=== PATIENT | male | born 1955 | race Caucasian/White ===

== ENCOUNTER 2019-02-01 19:55 | Outpatient (CLI) | payer BC | END 2019-02-02 06:45 | disposition home or self-care (01) | LOC: SLEEP 19:55 → EDUNIT# 20:00 → SLEEP 02-02 06:45 | PROVIDERS: ATTEND Internal Medicine Interventional Cardiology | DX: G47.00 Insomnia, unspecified (principal); G47.36 Sleep related hypoventilation in conditions classified elsewhere; I48.0 Paroxysmal atrial fibrillation; R06.83 Snoring; Z79.82 Long term (current) use of aspirin; Z79.899 Other long term (current) drug therapy | CPT/HCPCS: 95811 ==

== ENCOUNTER → 2019-06-03 | Day surgery (SDC) | payer BC ==
[~2019-06-03] VITALS: Ht 182.9 cm; Wt 102.1 kg
[~2019-06-03] MED LIST: LIDOCAINE 1% INJ 20 ML 20 ML VIAL ONE
[2019-06-03 08:06] VITALS: BP 153/99
--- NOTE | 2019-06-03 16:57 | Implantation of Loop Monitor ---
Implant of Loop Monitior PROCEDURE PHYSICIAN: Shira Monique MD IMPLANTATION OF LOOP MONITOR REPORT DATE OF PROCEDURE: 06/03/19 PERFORMING PHYSICIAN: Dr. David Monique. INDICATION: Long-term surveillance of atrial fibrillation PREOP DIAGNOSIS: Long-term surveillance of atrial fibrillation POSTOP DIAGNOSIS: Atrial fibrillation, s/p implantation of loop recorder. PROCEDURE DETAILS: The patient is a 63 male with history of paroxysmal atrial fibrillation requi ring long-term surveillance. Therefore implantable loop recorder was discussed and agreed with the patient. Informed consent was taken. All risks and complications were discussed at length. The patient was draped and prepped in the usual sterile fashion. Local anesthesia was lidocaine, which was given in the substernal area close to the 4th intercostal space. Loop monitor was impl anted according to the protocol. Steri-Strips were placed at the end of the procedure. There were no complications and the patient tolerated the procedure well. ANESTHESIA: Local anesthesia with lidocaine. COMPLICATIONS: None CONTRAST/FLUOROSCOPY: None CONCLUSION: 1. Successful implantation of loop monitor for paroxysmal atrial fibrillation. 2. No complication and the patient tolerated the procedure well. Shira Monique MD, RS, CCDS Cardiac Electrophysiology Pebbles MONIQUE MD Jun 03, 2019 16:57
== END | disposition home or self-care (01) ==
LOC: CATH 07:46
PROVIDERS: ATTEND Internal Medicine Interventional Cardiology
DX: I48.0 Paroxysmal atrial fibrillation (principal); G47.33 Obstructive sleep apnea (adult) (pediatric); E66.9 Obesity, unspecified; Z68.30 Body mass index [BMI] 30.0-30.9, adult; Z82.49 Family history of ischemic heart disease and other diseases of the circulatory system; Z79.82 Long term (current) use of aspirin; Z79.899 Other long term (current) drug therapy
CPT/HCPCS: 33285

== ENCOUNTER → 2019-06-17 | Outpatient (CLI) | payer BC ==
[~2019-06-17] MED LIST changes: +CATHETER FLUSH 10 ML SYR IV PRN; -LIDOCAINE 1% INJ 20 ML 20 ML VIAL ONE; +REGADENOSON 0.4 MG/5 ML SYR (LEXISCAN) IV ONE
[2019-06-17 09:27] VITALS: BP 139/70
[2019-06-17 09:29] VITALS: BP 141/105
--- NOTE | 2019-06-21 15:18 | Cardiology Stress Test Report ---
Stress Test Report Type of NM Stress Test: Test Type: LEXISCAN 0.4MG/5ML Date of Procedure/Referring: Date of Procedure: Jun 17, 2019 PCP Pebbles Monique MD Admitting Physician Holland Meyer MD Indications: Paroxysmal atrial fibrillation, shortness of breath Baseline Heart Rate: 60 Baseline Blood Pressure: Blood Pressure Systolic: 141 Blood Pressure Diastolic: 105 Baseline EKG: Baseline EKG: sinus rhythm Summary & Conclusion: Summary: The patient was brought to the stress lab after informed consent was taken. Stress test was performed according to the Lexiscan protocol. 0.4 mg of IV Lexiscan was given. Low-grade exercise was performed. Baseline EKG showed sinus rhythm at 60 BPM. Initial blood pressure was 129/83 mmHg. Maximum heart rate was 81 bpm and blood pressure 135/83 mmHg. Patient had mild chest pressure. no arrhythmias or ST segment changes during the stress test. 10.95 mCi of Myoview were given for rest imaging and 32.7 mCi of Myoview given for stress imaging. Transient ischemic dilatation score 1.04, EF 62 percent. Normal wall motion. Distal apical, inferior reversible defect. Conclusion: Pharmacological stress test was negative for ischemia. Normal LV function with no wall motion abnormalities. Likely ischemia in the distal inferior, apical territory. Coronary angiography is recommended. Pebbles MONIQUE MD Jun 21, 2019 15:18
== END ==
LOC: CARD 08:15
PROVIDERS: ATTEND Internal Medicine Interventional Cardiology
DX: G47.33 Obstructive sleep apnea (adult) (pediatric) (principal); E66.9 Obesity, unspecified; I48.0 Paroxysmal atrial fibrillation
CPT/HCPCS: 78452; 93017

== ENCOUNTER 2019-07-01 08:39 | Day surgery (SDC) | payer BC ==
[2019-07-01] VITALS (11 sets, daily range): BP systolic 128–174; BP diastolic 54–98
[~2019-07-01] VITALS: Ht 185.5 cm; Wt 102.3 kg
[2019-07-01] MEDS ORDERED: NS IV 1000 ML 1,000 ML IV SCH (09:34)
[2019-07-01] MEDS ORDERED: NS IV 1000 ML 1,000 ML ONE (09:35)
[2019-07-01] MEDS ORDERED: LIDOCAINE 1% INJ 20 ML 20 ML VIAL ONE (09:35)
[2019-07-01] MEDS ORDERED: HEParin (CATH LAB) 2,000 ML IV ONE (09:35)
[2019-07-01 10:00] LABS: HEMOGLOBIN 15.4 G/DL (13.3-17.7); MEAN PLATELET VOLUME 9.8 FL (7.4-10.4); RED CELL DISTRIBUTION WIDTH 13.7 % (10.0-14.5); WHITE BLOOD COUNT 6.9 10^3/uL (4.3-11.0)
[2019-07-01] MEDS ORDERED: NEBI5TAB8 PO ×2 (10:17→10:20)
[2019-07-01] MEDS ORDERED: TIMO5DRO8 OU (10:20)
[2019-07-01] MEDS ORDERED: DEXL60CA PO (10:21)
[2019-07-01] MEDS ORDERED: ASPI-808 PO (10:21)
[2019-07-01] MEDS ORDERED: CHOL5000 PO (10:21)
[2019-07-01] MEDS ORDERED: LORA10TA76 PO (10:22)
--- NOTE | 2019-07-01 10:22 | NUR ---
Spoke to patient he stated all of his medications with strengths and last time took.
[2019-07-01 10:25] LABS: PROTHROMBIN TIME PATIENT 13.6 SEC (12.2-14.7)
[2019-07-01 10:33] LABS: ALANINE AMINOTRANSFERASE 64 U/L (0-55); ALBUMIN 4.4 GM/DL (3.2-4.5); ALKALINE PHOSPHATASE 67 U/L (40-136); BILIRUBIN,TOTAL 0.6 MG/DL (0.1-1.0); BUN/CREATININE RATIO 11; CALCIUM 9.7 MG/DL (8.5-10.1); CARBON DIOXIDE 28 MMOL/L (21-32); CHLORIDE 105 MMOL/L (98-107); CHOLESTEROL 171 MG/DL (< 200); CREATININE SERUM 1.06 MG/DL (0.60-1.30); GFR ESTIMATED > 60; GLUCOSE 95 MG/DL (70-105); HDL CHOLESTEROL 35 MG/DL (40-60); POTASSIUM 4.2 MMOL/L (3.6-5.0); SODIUM 140 MMOL/L (135-145); TOTAL PROTEIN 7.2 GM/DL (6.4-8.2); TRIGLYCERIDES 189 MG/DL (<150); VLDL CHOLESTEROL 38 MG/DL (5-40)
--- NOTE | 2019-07-01 13:27 | Cardiac Procedure Note-CS/ASA ---
Pre-Procedure Note Pre-Op Procedure Note H&P Reviewed The H&P was reviewed, patient examined and no changes noted. Date H&P Reviewed: Jul 01, 2019 Time H&P Reviewed: 13:27 Conscious Sedation Pre-Proced Time 13:27 ASA Score 3 For ASA 3 and 4: Consider anesthesia and medical clearance. Also, for patients with a history of failed moderate sedation consider anesthesia. Airway Lungs Heart ASA score ASA 1: a normal healthy patient ASA 2: a patient with a mild systemic disease (mid diabetes, controlled hypertension, obesity ASA 3: a patient with a severe systemic disease that limits activity (angina, COPD, prior Myocardial infarction) ASA 4: a patient with an incapacitating disease that is a constant threat to life (CHF, renal failure) ASA 5: a moribund patient not expected to survive 24 hrs. (ruptured aneurysm) ASA 6: a declared brain- patient whose organs are being harvested. For emergent operations, add the letter E after the classification Mallampati Classification Grade 1 Sedation Plan Analgesia, Amnesia, Plan communicated to team members, Discussed options with patient/fam, Discussed risks with patient/fam The patient is an appropriate candidate to undergo the planned procedure, sedation, and anesthesia. The patient immediately re-assessed prior to indication. Pebbles MIRANDA MD Jul 01, 2019 1:27 pm
[2019-07-01] MEDS ORDERED: MIDAZOLAM 5 MG/5 ML (VERSED) VIAL ONE (13:35)
[2019-07-01] MEDS ORDERED: VERAPAMIL 5 MG/2 ML (CALAN) VIAL IV ONE (13:35)
[2019-07-01] MEDS ORDERED: HEParin 1000 UNIT/ML (10ML VIAL) FOR BOLUS ONE (13:35)
[2019-07-01] MEDS ORDERED: fentaNYL INJECTION 100 MCG/2 ML AMP ONE (13:35)
[2019-07-01] MEDS ORDERED: NITRO DRIP 25000 MCG/D5W 250 ML IV ONE (13:36)
[2019-07-01] MEDS ORDERED: TICAGRELOR 90 MG TABLET (BRILINTA) PO ONE (14:20)
--- NOTE | 2019-07-01 15:05 | Coronary Angiography & PCI ---
Coronary Angiography & PCI DATE OF PROCEDURE: 07/01/19 INDICATION: Paroxysmal atrial fibrillation, abnormal nuclear stress test. PREOPERATIVE DIAGNOSIS: Paroxysmal atrial fibrillation, abnormal nuclear stress test. POSTOPERATIVE DIAGNOSIS: Severe ostial ramus intermedius stenosis, successful drug-eluting stent. HISTORY: This is a 63-year-old gentleman with history of paroxysmal atrial fibrillation. We need to start the patient on antiarrhythmic therapy class IC therefore nuclear stress test was done which showed reversible ischemia. Therefore, the patient was scheduled for coronary angiography. PROCEDURES PERFORMED: 1.Coronary angiography. 2.Left heart catheterization. 3.PCI to the ramus intermedius with drug-eluting stent. COMPLICATIONS: None. SPECIMENS: None. ESTIMATED BLOOD LOSS: 10 mL ANESTHESIA: Conscious sedation ANTICOAGULATION: IV heparin CONTRAST: 124 mL. FLUOROSCOPY: 16 minutes. FLOUROSCOPY DOSE: 1626 mgy. PROCEDURE DETAILS: The patient is a 63 male and was brought to the laboratory coordinator after informed consent was taken. All the risks and complications were explained in detail; this included the risk of bleeding, vascular damage, stroke, [place] and even . The patient was draped and prepped in the usual sterile fashion. Access was gained in the right radial artery with a 6 Serbian sheath. Coronary angiography and left heart catheterization was performed with the Dudley catheter. Tortuous origin of the brachiocephalic artery from the aorta, making radial coronary angiography very challenging. FINDINGS: 1.Left main: Patent. 2.LAD: Mild mid disease. No focal stenosis. 3.Left circumflex artery: Severe ostial ramus intermedius stenosis. Stenosis severity is 90 percent. Long diseased segment. 4.RCA: Mild mid disease. 5.Left heart catheterization: LV pressure 105/12 mmHg. LVEDP 23 mmHg. Aortic pressure 100/64 mmHg. Normal LV function with no wall motion abnormalities. No gradient across the aortic valve. RECOMMENDATIONS: PCI to the ramus intermedius artery is recommended. INTERVENTION DETAILS: JL4 guide catheter, whisper extra-support guidewire, IV heparin for anticoagulation. ACT was over 220 seconds. Brilinta bolus 180 mg was given before PCI. The lesion in the ramus artery was crossed with the whisper wire. The tip of the whisper wire was placed in the distal segment. We then took a resolute integrity 2.75 x 30 mm drug-eluting stent and deployed it at 14 tanya for 41 seconds. We then took an NC Quantum 3.5 x 20 mm noncompliant balloon and postdilated the midsegment at 14 tanya for 46 seconds and the proximal segment at 16 tanya for 30 seconds. Mild spasm just distal to the stent. Responded to IC nitroglycerin. Excellent results with no residue stenosis, KHOI-3 flow, no vascular complications. Patient tolerated the procedure well. CONCLUSIONS: 1. Dual antiplatelet therapy, statin, aggressive secondary prevention measures. 2. Aspirin, Brilinta, Eliquis for the next one month. We will then discontinue aspirin and continue Brilinta and Eliquis long-term. Shira Monique MD, FACP, FACC, [facility] Interventional Cardiology Pebbles MONIQUE MD Jul 01, 2019 3:05 pm
[2019-07-01] MEDS: CLOPIDOGREL 75 MG (PLAVIX) TABLET PO SCH (16:22)
[2019-07-02] VITALS: BP 124/73
[2019-07-02 04:00] VITALS: BP 116/73
[2019-07-02] MEDS: CLOPIDOGREL 75 MG (PLAVIX) TABLET PO SCH (07:48)
[2019-07-02 08:00] VITALS: BP 139/76
[2019-07-02] MEDS ORDERED: lisINopril 5 MG (PRINIVIL) TABLET PO SCH (09:00)
[2019-07-02] MEDS ORDERED: CLOP75TA28 PO (09:54)
[2019-07-02] MEDS ORDERED: LISI-556 PO (09:54)
[2019-07-02] MEDS ORDERED: ATOR80TA76 PO (09:54)
--- NOTE | 2019-07-02 09:55 | Discharge Inst-Post CATH ---
Discharge Inst-CATH/EP Problems Reviewed?: Yes Final Diagnosis Severe one vessel CAD Post Cardiac Cath/EP D/C Inst Follow Up/Plan Dr Monique in four weeks. <b>CARDIAC CATH/EP PROCEDURE DISCHARGE INSTRUCTIONS</b> ACTIVITY * Go Home directly and rest. * Limit activity of the leg (or wrist if it was used) for 7 days including aerobics, swimming, jogging, bicycling, etc. * Restrict stair-climbing for 7 days if possible, if not, climb up with your non-cath leg, then bring together on the same step. * Avoid lifting, pushing, pulling or excessive movement of the affected extremity for 7 days. * Customary sexual activity may be resumed after 2 days-use caution not to use a position that strains or causes pain to the affected extremity. * No driving for 24 hours. * NO SMOKING. * Avoid straining for bowel movements for 7 days. * Gentle walking on level ground is allowed. * Returning to work will depend on the type of procedure and the results. Your doctor will discuss this with you. CALL YOUR DOCTOR FOR ANY OF THE FOLLOWING: *If bleeding from the puncture site occurs- Apply gentle pressure to site with clean cloth and call your doctor or EMS. * If a knot or lump forms under the skin, increases in size, or causes pain. * If bruising appears to be worsening or moving further down your leg instead of disappearing. * Temperature above 101 F. CARE OF YOUR GROIN INCISION; * Bruising or purple discoloration of the skin near the puncture site is common. * You may shower only, no bathtub bathing for 5 days. Be careful to avoid slipping as your leg may feel stiff. * If a closure device was used on your femoral artery, please see the attached guide regarding care of the device and your leg. * Leave dressing on FOR 24 hours. CARE OF YOUR WRIST INCISION; * Bruising or purple discoloration of the skin near the puncture site is common. * You may shower. * DO NOT submerge wrist. * Leave dressing on FOR 24 hours. Pebbles MONIQUE MD Jul 02, 2019 09:55
--- NOTE | 2019-07-02 09:57 | Cardiology Discharge Summary ---
Diagnosis/Chief Complaint Date of Admission 07/01/2019 Date of Discharge 07/02/2019 Admission Diagnosis Paroxysmal atrial fibrillation, abnormal nuclear stress test. Final/Discharge Diagnosis Paroxysmal atrial fibrillation, severe single vessel CAD. Chief Complaint/HPI Chief Complaint/HPI This is a 63-year-old gentleman with history of paroxysmal atrial fibrillation. We need to start the patient on antiarrhythmic therapy class IC therefore nuclear stress test was done which showed reversible ischemia. Therefore, the patient was scheduled for coronary angiography. Discharge Summary Procedures Severe ostial ramus intermedius stenosis treated successfully with one drug- eluting stent. Discharge Physical Examination Normal cardiovascular examination. Palpable right radial pulse. Hospital Course Was the Problem List Reviewed?: Yes Unremarkable. Discussion & Recommendations Discussion Discharge took over 30 minutes to complete. The procedure were explained in detail. All discharge instructions were discussed at length with the patient and family. Compliance with medications including dual antiplatelet therapy was recommended. Healthy living was also emphasized. Follow up appt.: Dr. Monique in one month. Dicharge Diet: Cardiac Diet Activity as Tolerated: Yes Home Medications Reviewed patient Home Medication Reconciliation performed by pharmacy medication reconciliations farm equipment service technician and/or nursing. Patients Allergies have been reviewed. Discharge Home Medications: Reviewed and agree with Discharge Medication list on patient's Discharge Instruction sheet Condition at discharge Stable. Instructions to patient/family Dr Monique in four weeks. Pebbles MONIQUE MD Jul 02, 2019 09:57
[2019-07-02 11:14] VITALS: BP 139/76
== END 2019-07-02 10:52 | disposition home or self-care (01) ==
LOC: CATH 08:39 → CSD 15:28 → CATH 07-02 10:52
PROVIDERS: ATTEND Internal Medicine Interventional Cardiology
DX: I48.0 Paroxysmal atrial fibrillation (principal); I25.10 Atherosclerotic heart disease of native coronary artery without angina pectoris; G47.33 Obstructive sleep apnea (adult) (pediatric); Z79.82 Long term (current) use of aspirin; Z79.02 Long term (current) use of antithrombotics/antiplatelets; Z79.899 Other long term (current) drug therapy; Z82.49 Family history of ischemic heart disease and other diseases of the circulatory system
CPT/HCPCS: 36415; 80053; 80061; 85027; 85347; 85610; 85730; 87081; 93458

== ENCOUNTER 2020-05-08 07:51 | Day surgery (SDC) | payer BC ==
[2020-05-08] VITALS (17 sets, daily range): BP systolic 96–143; BP diastolic 51–96
[~2020-05-08] VITALS: Ht 182.9 cm; Wt 100.0 kg
[~2020-05-08 07:51] MED LIST changes: +ASPI-808 PO; +ATOR80TA76 PO; -CATHETER FLUSH 10 ML SYR IV PRN; +CHOL5000 PO; +CLOP75TA28 PO; +DEXL60CA PO; +LISI-556 PO; +LORA10TA76 PO; +NEBI5TAB8 PO; -REGADENOSON 0.4 MG/5 ML SYR (LEXISCAN) IV ONE; +TIMO5DRO8 OU
[2020-05-08] MEDS ORDERED: NS IV 1000 ML 1,000 ML IV SCH (07:54)
[2020-05-08] MEDS ORDERED: ISOPROTERENOL 0.2 MG/D5W 50 ML IV ONE (08:00)
[2020-05-08 08:19] LABS: HEMOGLOBIN 15.1 G/DL (13.3-17.7); MEAN PLATELET VOLUME 9.8 FL (7.4-10.4); WHITE BLOOD COUNT 7.3 10^3/uL (4.3-11.0)
[2020-05-08] MEDS ORDERED: LIDOCAINE BOLUS 100 MG/5 ML (IMS) SYR ONE (08:23)
[2020-05-08] MEDS ORDERED: SUCCINYLCHOLINE INJ 100 MG/5 ML SYR/VIAL ONE (08:23)
[2020-05-08] MEDS ORDERED: ROCURONIUM 10 MG/ML 5 ML SYRINGE IV ONE ×3 (08:23→11:56)
[2020-05-08] MEDS ORDERED: proPOfol 200 MG/20 ML (DIPRIVAN) VIAL IV ONE (08:23)
[2020-05-08] MEDS ORDERED: fentaNYL INJECTION 100 MCG/2 ML AMP ONE (08:24)
[2020-05-08] MEDS ORDERED: MIDAZOLAM 2 MG/2 ML (VERSED) VIAL ONE (08:24)
[2020-05-08 08:31] LABS: INR 0.9 (0.8-1.4)
[2020-05-08 08:36] LABS: ALANINE AMINOTRANSFERASE 22 U/L (0-55); ALBUMIN 4.4 GM/DL (3.2-4.5); ALKALINE PHOSPHATASE 66 U/L (40-136); BILIRUBIN,TOTAL 0.5 MG/DL (0.1-1.0); BUN/CREATININE RATIO 19; CALCIUM 9.3 MG/DL (8.5-10.1); CARBON DIOXIDE 26 MMOL/L (21-32); CHLORIDE 110 MMOL/L (98-107); CREATININE SERUM 1.03 MG/DL (0.60-1.30); GFR ESTIMATED > 60; GLUCOSE 106 MG/DL (70-105); POTASSIUM 4.3 MMOL/L (3.6-5.0); SODIUM 141 MMOL/L (135-145); TOTAL PROTEIN 6.7 GM/DL (6.4-8.2)
[2020-05-08] MEDS ORDERED: C,E,1CAP PO (08:41)
[2020-05-08] MEDS ORDERED: CLOP75TA69 PO (08:41)
[2020-05-08] MEDS ORDERED: DIPH25CA79 PO (08:41)
--- OUTSIDE RECORDS SUMMARY | 2020-05-08 08:42 | XMS REPORT | Continuity of Care Document ---
Author Author [facility] Organization [employer] Address Unknown Phone Unavailable Allergies Active Description Code Type Severity Reaction Onset Reported/Identified Relationship to Patient Clinical Status Yes NO KNOWN DRUG ALLERGIES UNKNOWN NO KNOWN DRUG ALLERG Yes NO KNOWN DRUG ALLERGIES UNKNOWN UNKNOWN Yes No Allergy Information Available [id number] Drug Allergy Unknown N/A 019 Yes No Known Drug Allergies [id number] Drug Allergy Unknown N/A 07/01/2019 Medications There is no data. Problems Date Dx Coded Attending Type Code Diagnosis Diagnosed By 07/01/2016 A V70.5 HEAL TH EXAMINATION OF DEFINED SUBPOPULATIONS 07/01/2016 A Z02.1 ENCO UNTER FOR PRE- EMPLOYMENT EXAMINATION 12/03/2018 W 427.31 ATR IAL FIBRILLATION 12/03/2018 W 477.8 BETSEY RGIC RHINITIS DUE TO OTHER ALLERGEN 12/03/2018 W 550 INGUIN AL HERNIA 12/03/2018 W 786.09 OTH ER DYSPNEA AND RESPIRATORY ABNORMALITY 12/03/2018 W I48.2 PUTTY MIXER FELIX ATRIAL FIBRILLATION 12/03/2018 W J30.2 OTHE R SEASONAL ALLERGIC RHINITIS 12/03/2018 W K40.90 UNI LATERAL INGUINAL HERNIA, WITHOUT OBSTRUCTION OR GANGRENE, NOT SPECIFIED RECURRENT 12/03/2018 W R06.02 HUGO RTNESS OF BREATH 12/03/2018 W V70.0 ROUT INE GENERAL MEDICAL EXAMINATION AT A HEALTH CARE FACILITY 12/03/2018 W Z00.00 ENC NTR FOR GENERAL ADULT MEDICAL EXAM W/O ABNORMAL FINDINGS 12/04/2018 Maia Janie W 427.31 ATRIAL FIBRILLATION 12/04/2018 Janie Carvalho W 786.09 OTHER DYSPNEA AND RESPIRATORY ABNORMALITY 12/04/2018 Janie Carvalho W I48.2 CHRONIC ATRIAL FIBRILLATION 12/04/2018 Janie Carvalho W R06.02 SHORTNESS OF BREATH 12/04/2018 MaiaJanie W 427.31 ATRIAL FIBRILLATION 12/04/2018 MaiaJanie W 477.8 ALLERGIC RHINITIS DUE TO OTHER ALLERGEN 12/04/2018 Janie Carvalho W 550 INGUINAL HERNIA 12/04/2018 Janie Carvalho W 786.09 OTHER DYSPNEA AND RESPIRATORY ABNORMALITY 12/04/2018 Janie Carvalho W I48.2 CHRONIC ATRIAL FIBRILLATION 12/04/2018 Janie Carvalho W J30.2 OTHER SEASONAL ALLERGIC RHINITIS 12/04/2018 Janie Carvalho W K40.90 UNILATERAL INGUINAL HERNIA, WITHOUT OBSTRUCTION OR GANGRENE, NOT SPECIFIED RECURRENT 12/04/2018 Janie Carvalho W R06.02 SHORTNESS OF BREATH 12/04/2018 Janie Carvalho W V70.0 ROUTINE GENERAL MEDICAL EXAMINATION AT A HEALTH CARE FACILITY 12/04/2018 Janie Carvalho W Z00.00 ENCNTR FOR GENERAL ADULT MEDICAL EXAM W/O ABNORMAL FINDINGS 02/02/2019 Pebbles MIRANDA MD Ot G47.00 INSOMNIA, UNSPECIFIED 02/02/2019 Pebbles MIRANDA MD Ot G47.36 SLEEP RELATED HYPOVENTILATION IN CONDITI 02/02/2019 Pebbles MIRANDA MD Ot I48 .0 PAROXYSMAL ATRIAL FIBRILLATION 02/02/2019 Pebbles MIRANDA MD Ot R06.83 SNORING 02/02/2019 Pebbles MIRANDA MD Ot Z79.82 HAND CROWN POUNCER (CURRENT) USE OF ASPIRIN 02/02/2019 Pebbles MIRANDA MD Ot Z79.899 OTHER HAND CROWN POUNCER (CURRENT) DRUG THERAPY 02/02/2019 Pebbles MIRANDA MD Ot G47.00 INSOMNIA, UNSPECIFIED 02/02/2019 Pebbles MIRANDA MD Ot G47.36 SLEEP RELATED HYPOVENTILATION IN CONDITI 02/02/2019 Pebbles MIRANDA MD Ot I48 .0 PAROXYSMAL ATRIAL FIBRILLATION 02/02/2019 Pebbles MIRANDA MD Ot R06.83 SNORING 02/02/2019 Pebbles MIRANDA MD Ot Z79.82 NURSING HOME (CURRENT) USE OF ASPIRIN 02/02/2019 Pebbles MIRANDA MD Ot Z79.899 OTHER HAND CROWN POUNCER (CURRENT) DRUG THERAPY 04/19/2019 Pebbles MIRANDA MD Ot E66 .9 OBESITY, UNSPECIFIED 04/19/2019 Pebbles MIRANDA MD Ot I48 .0 PAROXYSMAL ATRIAL FIBRILLATION 06/08/2019 Pebbles MIRANDA MD Ot E66 .9 OBESITY, UNSPECIFIED 06/08/2019 Pebbles MIRANDA MD Ot G47.33 OBSTRUCTIVE SLEEP APNEA (ADULT) (PEDIATR 06/08/2019 Pebbles MIRANDA MD Ot I48 .0 PAROXYSMAL ATRIAL FIBRILLATION 06/08/2019 Pebbles MIRANDA MD Ot Z68.30 BODY MASS INDEX (BMI) 30.0-30.9, ADULT 06/08/2019 Pebbles MIRANDA MD Ot Z79.82 HAND CROWN POUNCER (CURRENT) USE OF ASPIRIN 06/08/2019 Pebbles MIRANDA MD Ot Z79.899 OTHER HAND CROWN POUNCER (CURRENT) DRUG THERAPY 06/08/2019 Pebbles MIRANDA MD Ot Z82.49 FAMILY HX OF ISCHEM HEART DIS AND OTH DI 06/17/2019 Pebbles MIRANDA MD Ot E66 .9 OBESITY, UNSPECIFIED 06/17/2019 Pebbles MIRANDA MD Ot I48 .0 PAROXYSMAL ATRIAL FIBRILLATION 06/24/2019 Pebbles MIRANDA MD Ot E66 .9 OBESITY, UNSPECIFIED 06/24/2019 Pebbles MIRANDA MD Ot G47.33 OBSTRUCTIVE SLEEP APNEA (ADULT) (PEDIATR 06/24/2019 Pebbles MIRANDA MD Ot I48 .0 PAROXYSMAL ATRIAL FIBRILLATION 06/24/2019 Pebbles MIRANDA MD Ot Z68.30 BODY MASS INDEX (BMI) 30.0-30.9, ADULT 06/24/2019 Pebbles MIRANDA MD Ot Z79.82 HAND CROWN POUNCER (CURRENT) USE OF ASPIRIN 06/24/2019 Pebbles MIRANDA MD Ot Z79.899 OTHER NURSING HOME (CURRENT) DRUG THERAPY 06/24/2019 Pebbles MIRANDA MD Ot Z82.49 FAMILY HX OF ISCHEM HEART DIS AND OTH DI 06/27/2019 Pebbles MIRANDA MD Ot E66 .9 OBESITY, UNSPECIFIED 06/27/2019 Pebbles MIRANDA MD Ot G47.33 OBSTRUCTIVE SLEEP APNEA (ADULT) (PEDIATR 06/27/2019 RUBEN HENDERSON, Pebbles ALCALA Ot I48 .0 PAROXYSMAL ATRIAL FIBRILLATION 07/01/2019 RUBEN HENDERSON, Pebbles ALCALA Ot E66 .9 OBESITY, UNSPECIFIED 07/01/2019 Pebbles MIRANDA MD Ot I48 .0 PAROXYSMAL ATRIAL FIBRILLATION 07/02/2019 Pebbles MIRANDA MD Ot G47.33 OBSTRUCTIVE SLEEP APNEA (ADULT) (PEDIATR 07/02/2019 RUBEN HENDERSON, Pebbles ALCALA Ot I25.10 ATHSCL HEART DISEASE OF [place] CORONARY 07/02/2019 Pebbles MIRANDA MD Ot I48 .0 PAROXYSMAL ATRIAL FIBRILLATION 07/02/2019 Pebbles MIRANDA MD Ot Z79.02 NURSING HOME (CURRENT) USE OF ANTITHROMBOTI 07/02/2019 Pebbles MIRANDA MD Ot Z79.82 HAND CROWN POUNCER (CURRENT) USE OF ASPIRIN 07/02/2019 Pebbles MIRANDA MD Ot Z79.899 OTHER HAND CROWN POUNCER (CURRENT) DRUG THERAPY 07/02/2019 Pebbles MIRANDA MD Ot Z82.49 FAMILY HX OF ISCHEM HEART DIS AND OTH DI 07/05/2019 Pebbles MIRANDA MD Ot G47.33 OBSTRUCTIVE SLEEP APNEA (ADULT) (PEDIATR 07/05/2019 Pebbles MIRANDA MD Ot I25.10 ATHSCL HEART DISEASE OF [place] CORONARY 07/05/2019 Pebbles MIRANDA MD Ot I48 .0 PAROXYSMAL ATRIAL FIBRILLATION 07/05/2019 Pebbles MIRANDA MD Ot Z79.02 NURSING HOME (CURRENT) USE OF ANTITHROMBOTI 07/05/2019 Pebbles MIRANDA MD Ot Z79.82 NURSING HOME (CURRENT) USE OF ASPIRIN 07/05/2019 Pebbles MIRANDA MD Ot Z79.899 OTHER NURSING HOME (CURRENT) DRUG THERAPY 07/05/2019 Pebbles MIRANDA MD Ot Z82.49 FAMILY HX OF ISCHEM HEART DIS AND OTH DI 07/05/2019 Pebbles MIRANDA MD Ot G47.33 OBSTRUCTIVE SLEEP APNEA (ADULT) (PEDIATR 07/05/2019 Pebbles MIRANDA MD, Ot I25.10 ATHSCL HEART DISEASE OF [place] CORONARY 07/05/2019 Pebbles MIRANDA MD, Ot I48 .0 PAROXYSMAL ATRIAL FIBRILLATION 07/05/2019 Pebbles MIRANDA MD, Ot Z79.02 NURSING HOME (CURRENT) USE OF ANTITHROMBOTI 07/05/2019 Pebbles MIRANDA MD, Ot Z79.82 NURSING HOME (CURRENT) USE OF ASPIRIN 07/05/2019 Pebbles MIRANDA MD, Ot Z79.899 OTHER HAND CROWN POUNCER (CURRENT) DRUG THERAPY 07/05/2019 Pebbles MIRANDA MD, Ot Z82.49 FAMILY HX OF ISCHEM HEART DIS AND OTH DI 07/07/2019 Pebbles MIRANDA MD, Ot E66 .9 OBESITY, UNSPECIFIED 07/07/2019 Pebbles MIRANDA MD, Ot G47.33 OBSTRUCTIVE SLEEP APNEA (ADULT) (PEDIATR 07/07/2019 Pebbles MIRANDA MD, Ot I48 .0 PAROXYSMAL ATRIAL FIBRILLATION Procedures There is no data. Results Test Result Range Varicella-Zoster V Ab, IgG - 07/01/16 11 :43 VARICELLA ZOSTER IGG 666 index Immune >1 65 EKG - 12/04/18 10:29 EKG Complete Lab Card - 12/04/18 10:57 LabCard Specimen submitted to [facility] for Testing. Automated blood complete blood count (he mogram) panel - 07/01/19 09:55 Blood leukocytes automated count (number/volume) 6.9 10*3/uL 4.3-11.0 Blood erythrocytes automated count (number/volume) 5.20 10*6/uL 4.35-5.85 Venous blood hemoglobin measurement (mass/volume) 15.4 g/dL 13.3-17.7 Blood hematocrit (volume fraction) 45 % 40-54 Automated erythrocyte mean corpuscular volume 86 [ foz_us] 80-99 Automated erythrocyte mean corpuscular h emoglobin (mass per erythrocyte) 30 pg 25-34 Automated erythrocyte mean corpuscular h emoglobin concentration measurement (mass/volume) 35 g/dL 32-36 Automated erythrocyte distribution width ratio 13. 7 % 10.0- 14.5 Automated blood platelet count (count/volume) 244 10*3/uL 130-400 Automated blood platelet mean volume measurement 9.8 [foz_us] 7.4-10.4 PT panel in platelet poor plasma by coag ulation assay - 07/01/19 09:55 Prothrombin time (PT) in platelet poor plasma by coagu lation assay 13.6 s 12.2-14.7 INR in platelet poor plasma or blood by coagulation as say 1.0 0.8-1.4 Activated partial thromboplastin time (a PTT) in platelet poor plasma bycoagulation assay - 07/01/19 09:55 Activated partial thromboplastin time (a PTT) in platelet poor plasma bycoagulation assay 23 s 24-35 Comprehensive metabolic panel - 07/01/19 09:55 Serum or plasma sodium measurement (moles/volume) 140 mmol/L 135-145 Serum or plasma potassium measurement (moles/volume) 4.2 mmol/L 3.6-5.0 Serum or plasma chloride measurement (moles/volume) 105 mmol/L 98-107 Carbon dioxide 28 mmol/L 21-32 Serum or plasma anion gap determination (moles/volume) 7 mmol/L 5-14 Serum or plasma urea nitrogen measurement (mass/volume ) 12 mg/dL 7-18 Serum or plasma creatinine measurement (mass/volume) 1.06 mg/dL 0.60-1.30 Serum or plasma urea nitrogen/creatinine mass ratio 11 NRG Serum or plasma creatinine measurement w ith calculation of estimated glomerular filtration rate > NRG Serum or plasma glucose measurement (mass/volume) 95 mg/dL 70-105 Serum or plasma calcium measurement (mass/volume) 9.7 mg/dL 8.5-10.1 Serum or plasma total bilirubin measurement (mass/volu me) 0.6 mg/dL 0.1-1.0 Serum or plasma alkaline phosphatase kelsea surement (enzymatic activity/volume) 67 U/L 40-136 Serum or plasma aspartate aminotransfera se measurement (enzymatic activity/volume) 57 U/L 5-34 Serum or plasma alanine aminotransferase measurement (enzymatic activity/volume) 64 U/L 0-55 Serum or plasma protein measurement (mass/volume) 7.2 g/dL 6.4-8.2 Serum or plasma albumin measurement (mass/volume) 4.4 g/dL 3.2-4.5 CALCIUM CORRECTED 9.4 mg/dL 8.5-10.1 Lipid 1996 panel - 07/01/19 09:55 Serum or plasma triglyceride measurement (mass/volume) 189 mg/dL <150 Serum or plasma cholesterol measurement (mass/volume) 171 mg/dL < 200 Serum or plasma cholesterol in HDL measurement (mass/v olume) 35 mg/dL 40-60 Cholesterol in LDL [mass/volume] in serum or plasma by direct assay 116 mg/dL 1-129 Serum or plasma cholesterol in VLDL measurement (mass/ volume) 38 mg/dL 5-40 Methicillin resistant Staphylococcus aur eus (MRSA) screening culture - 07/01/19 09:55 Methicillin resistant Staphylococcus aureus (MRSA) scr eening culture NEG NRG Lipid Panel - 09/17/19 08:19 C/HDL 2.1 3.7-6.7 Cholesterol 82 Testing Performed at [facility] mg/dL 100-240 HDL 39 mg/dL 30-85 LDL-Calculated 20 mg/dL 0-100 Trig 116 mg/dL 35-160 PSA Yearly Screen - 02/22/20 09:50 PSA TOTAL 2.4 ng/mL 0.0-4.0 Encounters ACCT No. Visit Date/Time Discharge Status Pt. Type Provider Facility Loc./Unit Complaint [id number] 02/22/2020 11:58:00 02/22/2020 23:59 :00 DIS Outpatient Janie Carvalho [id number] 02/22/2020 09:12:00 02/22/2020 23:59 :00 DIS Outpatient Janie Carvalho [id number] 09/17/2019 08:13:00 09/17/2019 23:59 :00 DIS Outpatient VICTOR MANUEL MIRANDA [id number] 07/05/2019 11:48:00 07/05/2019 23:59: 00 DIS Outpatient VICTOR MANUEL MIRANDA [id number] 06/22/2019 14:01:00 06/22/2019 23:59: 00 DIS Outpatient CAMERON SNYDER [id number] 12/04/2018 10:28:00 12/04/2018 23:59: 00 DIS Outpatient Janie Carvalho [id number] 07/07/2017 10:38:00 07/07/2017 23:59: 00 DIS Outpatient CAMERON SNYDER [id number] 11/19/2016 09:56:00 11/19/2016 23:59: 00 DIS Outpatient Holland Meyer [id number] 07/08/2016 14:18:00 07/08/2016 23:59: 00 DIS Outpatient CAMERON SNYDER [id number] 08/16/2019 11:25:48 Document Registration [id number] 12/03/2018 10:51:00 Document Registration [id number] 07/01/2016 11:25:00 Document Registration [id number] 07/01/2016 11:25:00 Document Registration [id number] 07/01/2019 08:39:00 10:52:00 DIS Outpatient Pebbles MIRANDA MD [facility] PAF [id number] 06/17/2019 08:15:00 23:59:59 CLS Outpatient Pebbles MIRANDA MD [facility] BERNARDO, OBESITY, PAF [id number] 06/04/2019 14:00:00 23:59:59 CLS Preadmit Pebbles MIRANDA MD [facility] CARD BERNARDO, OBESITY, PAF [id number] 06/03/2019 07:46:00 23:59:59 CLS Outpatient Pebbles MIRANDA MD [facility] NURSING HOME SURVEILLANCE, PAF [id number] 04/20/2019 10:00:00 23:59:59 CLS Preadmit Pebbles MIRANDA MD [facility] CARD PAF [id number] 01/19/2019 08:18:00 00:01:00 DIS Outpatient Pebbles MIRANDA MD [facility] CARD PAF [id number] 02/01/2019 19:55:00 06:45:00 DIS Outpatient Pebbles MIRANDA MD [facility] SLEEP G47.36 SLEEP RELATED HYPOVENTILATION [id number] 05/08/2020 08:00:00 P EN Preadmit Pebbles MIRANDA MD [facility] PAF
[2020-05-08] MEDS ORDERED: HEParin (CATH LAB) 3,000 ML IV ONE (08:59)
[2020-05-08] MEDS ORDERED: NS IV 1000 ML 2,000 ML ONE (08:59)
[2020-05-08] MEDS ORDERED: LIDOCAINE 1% INJ 20 ML 20 ML VIAL ONE (08:59)
[2020-05-08] MEDS ORDERED: HEParin 1000 UNIT/ML (10ML VIAL) FOR BOLUS ONE (09:21)
[2020-05-08] MEDS ORDERED: HEParin DRIP 25000 UNIT/500ML 500 ML IV ONE (09:21)
[2020-05-08] MEDS ORDERED: LACTATED RINGERS 1,000 ML IV ONE ×3 (09:44→15:54)
--- NOTE | 2020-05-08 14:37 | History & Physicial-Cardiolgy ---
HPI-Cardiology Cardiology Consultation: Date of Consultation 05/08/20 Date of Admission Attending Physician Pebbles Monique MD Admitting Physician Holland Meyer MD Consulting Physician Pebbles MONIQUE MD HPI: Time Seen by a Provider: 08:30 Chief Complaint: AF AF refractory to medical therapy Review of Systems-Cardiology Review of Systems Constitutional: As described under HPI; No As described under HPI, No no sym ptoms reported, No chills, No fever, No lightheadedness Eyes: No As described under HPI, No no symptoms reported, No blindness, No blurred vision, No contact lenses, No drainage, No decreased acuity, No foreign body sensation, No pain, No vision change Ears/Nose/Throat: No As described under HPI, No no symptoms reported, No chronic hearing loss, No ear discharge, No ear pain, No nasal drainage, No ulcerations Respiratory: No no symptoms reported; As described under HPI; No As described under HPI, No cough, No orthopnea, No shortness of breath, No SOB with excertion Cardiovascular: No no symptoms reported; As described under HPI; No As described under HPI, No chest pain, No edema, No irregular heart rate, No lightheadedness, No palpitations Gastrointestinal: No no symptoms reported, No As described under HPI, No abdomen distended, No abdominal pain, No blood streaked bowels, No constipation, No diarrhea, No nausea, No vomiting, No stool coloration changes Genitourinary: No As described under HPI, No burning, No dysuria, No discharge, No frequency, No flank pain, No hematuria, No urgency Skin: No rash, No skin related problems, No ulcerations Psychiatric/Neurological: No anxiety, No depression, No seizure, No focal weakness, No syncope Hematologic: No bleeding abnormalities GEP-Ptkwem-Calkij Hx Patient Social History Alcohol Use: Denies Use Recreational Drug Use: No Smoking Status: Never a Smoker Recent Foreign Travel: No Immunizations Up To Date Date of Influenza Vaccine: Jun 22, 2019 Past Medical History PMH As described under Assessment. Allergies and Home Medications Allergies Coded Allergies: No Known Drug Allergies (Unverified , 07/01/19) Home Medications Aspirin 325 Mg Tablet, 325 MG PO HS, (Reported) Atorvastatin Calcium 80 Mg Tablet, 80 MG PO HS Prescribed by: Pebbles MONIQUE on 07/02/19 0954 C,E,Zinc,Copper 11/Geawp1n/Lut 1 Each Capsule, 1 EACH PO HS, (Reported) Cholecalciferol (Vitamin D3) 5,000 Unit Capsule, 5,000 UNIT PO HS, (Reported) Clopidogrel Bisulfate 75 Mg Tablet, 75 MG PO HS, (Reported) Dexlansoprazole 60 Mg bp, 60 MG PO HS, (Reported) Diphenhydramine HCl 25 Mg Capsule, 25 MG PO HS, (Reported) Lisinopril 5 Mg Tablet, 2.5 MG PO DAILY Prescribed by: Pebbles MONIQUE on 07/02/19 0954 Loratadine 10 Mg Tablet, 10 MG PO HS, (Reported) Nebivolol HCl 5 Mg Tablet, 5 MG PO HS, (Reported) Timolol Maleate 5 Ml Drops, 1 DROP OU HS, (Reported) Patient Home Medication List Home Medication List Reviewed: Yes Physical Exam-Cardiology Physical Exam Vital Signs/I&O 05/08/20 08:12 Temp 36.0 Pulse 56 Resp 20 B/P (MAP) 143/91 (108) Pulse Ox 97 Capillary Refill : Constitutional: appears stated age; No apparent distress; well-developed, well- nourished HEENT: PERRL; No discharge; hearing is well preserved, oral hygience is good; No ulceration, No xanthelasmas are seen Neck: No carotid bruit; carotid pulses are 2 + bilaterally Respiratory: chest is bilaterally symmetric, lungs clear to auscultation Cardiovascular: regular rate-rhythm, S1 and S2 Gastrointestinal: soft, abnormal bowel sounds; No spleenomegaly Rectal: deferred Extremities: No clubbing, No cyanosis; no lower extremity edema bilateral; No significant edema Neurologic/Psychiatric: no motor/sensory deficits, alert, normal mood/affect, oriented x 3, power is 5/5 both on sides Skin: No rash, No ulcerations Data Review Labs Laboratory Tests 05/08/20 08:15: White Blood Count 7.3, Red Blood Count 5.06, Hemoglobin 15.1, Hematocrit 43, Mean Corpuscular Volume 85, Mean Corpuscular Hemoglobin 30, Mean Corpuscular Hemoglobin Concent 35, Red Cell Distribution Width 13.5, Platelet Count 229, Mean Platelet Volume 9.8, Prothrombin Time 13.0, INR Comment 0.9, Activated Partial Thromboplast Time 25, Sodium Level 141, Potassium Level 4.3, Chloride Level 110H, Carbon Dioxide Level 26, Anion Gap 5, Blood Urea Nitrogen 20H, Creatinine 1.03, Estimat Glomerular Filtration Rate > 60, BUN/Creatinine Ratio 19, Glucose Level 106H, Calcium Level 9.3, Corrected Calcium 9.0, Total Bilirubin 0.5, Aspartate Amino Transf (AST/SGOT) 23, Alanine Aminotransferase (ALT/SGPT) 22, Alkaline Phosphatase 66, Total Protein 6.7, Albumin 4.4 ECG Impression ECG Initial ECG Rhythm: Normal Sinus Initial ECG Impression: Normal A/P-Cardiology Assessment/Admission Diagnosis Paroxysmal atrial fibrillation refractory to medical therapy. Admission Status: Observation Plan Atrial fibrillation ablation is recommended. Pebbles MONIQUE MD May 08, 2020 14:37
[2020-05-08] MEDS ORDERED: ONDANSETRON 4 MG/2 ML (SDV) Z0FRAN ONE ×2 (14:39→15:08)
--- NOTE | 2020-05-08 14:42 | Electrophysiology Procedure ---
EP Procedure Paroxysmal atrial fibrillation ablation operative report DATE OF SERVICE:05/08/20 CARDIAC BISTRO ATTENDANT: Shira Monique MD, [facility] INDICATION: Paroxysmal atrial fibrillation refractory to medical therapy. PREOPERATIVE DIAGNOSIS:Paroxysmal atrial fibrillation refractory to medical therapy. POSTOPERATIVE DIAGNOSES: Successful PVI. HISTORY: Paroxysmal atrial fibrillation refractory to medical therapy. The patient is planned for comprehensive EP study and ablation. PROCEDURE PERFORMED: 1. Comprehensive EP study with induction. 2. Fluoroscopy. 3. Left atrial pacing and recording. 4. Drug infusion. 5. Left ventricular pacing and recording. 6. Comprehensive 3D mapping with the carto system. 7. Pulmonary vein isolation. 8. Transesophageal echocardiogram. 9. Direct external electrical cardioversion. COMPLICATION: None. ESTIMATED BLOOD LOSS: 10 mL. CONTRAST USED: None. FLUOROSCOPY TIME: 7.3 minutes. FLUOROSCOPY DOSE: 151 SPECIMENS: None. ANESTHESIA: Done by our anesthesia colleagues. ANTICOAGULATION: Patient was not on anticoagulation. Therefore transesophageal echocardiogram was done which did not show any left atrial or left atrial appendage thrombus. PROCEDURE IN DETAIL: After informed consent was taken, the patient was brought to the EP lab. Anesthesia was provided by our anesthesia colleagues. The patient was draped and prepped in the usual sterile fashion. The patient presented to the EP lab in sinus rhythm. 3D mapping was done with Carto system. Left atrial pacing and recording was also done. Access was gained in the right femoral vein with one 8-Yemeni sheath and one 7 Yemeni sheath. Left access in left femoral vein was gained with 12 Yemeni sheath and a 6 Yemeni sheath. A his catheter was advanced through the 6 Yemeni sheath in the left femoral vein and a CS catheter were advanced through the 6 Yemeni sheaths in the right femoral vein. Intracardiac echocardiogram was performed with an ICE catheter. Numerous images were taken of the RV, RA, left atrium and LV. There was no pericardial effusion. There was no thrombus in the left atrium or left atrial appendage. All 4 pulmonary veins were identified. A carto-sound map was created with the ice catheter. We then advanced a guidewire into the superior vena cava. A long sheath was advanced with the transseptal needle. Transeptal puncture was performed under ICE and flouroscopic guidance. Left atrial pressure was documented. IV heparin bolus was given followed by heparin infusion. ACT target over 350 seconds. Patient was on uninterrupted oral anticoagulation therapy. The transseptal needle was taken out and a PENTARAY mapping catheter was utilized to perform voltage mapping of the left atrium. We then proceeded with pulmonary vein isolation. PVI was confirmed. During rapid atrial pacing with Isuprel, patient went into atrial fibrillation. Direct electrical cardioversion was performed at 200 J which converted the patient to sinus rhythm. Bilateral summer lines were done. Repeat testing showed bilateral pulmonary vein isolation after summer lines. Isuprel infusion was given at 20 g with rapid atrial pacing at cycle length 250 ms with no sustained induction of atrial fibrillation, atrial tachycardia or atrial flutter. We then pulled the ablation catheter as well as the transseptal catheter into the right atrium. IV heparin was discontinued. Intracardiac echocardiogram demonstrated no pericardial effusion. Final intracardiac echocardiogram images demonstrated no pericardial effusion. All the sheaths were taken out. 20 mg of IV protamine was given. 10 mg of Decadron was given. Since the patient was not on Eliquis he was given Lovenox 100 mg subcutaneous. Figure of 8 sutures were done in both venous access and manual compression done for 5 minutes. Hemostasis was achieved. Patient tolerated the procedure well and did not have any complications. The patient left the EP lab in sinus rhythm. Total ablation time 28 minutes and 29 seconds. MEASUREMENTS/EP STUDY: AA interval 950 ms, AH interval 76 ms, HV interval 58 ms, NJ interval 101 ms, next and QRS duration 69 ms, QT interval to 77 ms, R-R interval 912 ms, Left ventricular pacing and recording did not demonstrate any retrograde conduction at pacing at 600 ms cycle length. Left atrial pacing and recording did not demonstrate a left-sided bypass tract. AV Wenckebach when pacing at cycle length 450 ms, Atrial ERP 600/240 ms. PLAN: The patient will be observed overnight and will be discharged home tomorrow with precise followup instructions. Shira Monique MD, [facility] Cardiac Electrophysiology Pebbles MONIQUE MD May 08, 2020 14:42
[2020-05-08] MEDS ORDERED: PATIENT MAY USE OWN MEDS, ALL PO SCH (14:45)
[2020-05-08] MEDS ORDERED: ENOXAPARIN 100 MG/1 ML (LOVENOX) SYR ONE (15:02)
[2020-05-08] MEDS ORDERED: PROTAMINE 50 MG/5 ML VIAL ONE (15:02)
[2020-05-08] MEDS ORDERED: morphine INJ 10 MG/ML 1ML (SYR OR VIAL) ONE (15:08)
[2020-05-08] MEDS ORDERED: GLYCOPYRROLATE 0.2 MG/ML (ROBINUL) 2 ML VIAL ONE (15:32)
[2020-05-08] MEDS ORDERED: NEOSTIGMINE 3 MG/3 ML VIAL ONE (15:32)
[2020-05-08] MEDS ORDERED: SEVOFLURANE (ULTANE) 15 ML INHAL SOLN ONE (15:50)
[2020-05-08] MEDS ORDERED: MEPERIDINE (DEMEROL) INJ 50 MG/ML IVP ONE (16:00)
[2020-05-08] MEDS ORDERED: HYDROmorphone 2 MG/ML VIAL (DILAUDID) IV ONE (16:00)
[2020-05-08] MEDS ORDERED: ONDANSETRON 4 MG/2 ML (SDV) Z0FRAN IVP PRN (16:00)
[2020-05-08] MEDS ORDERED: morphine INJ 10 MG/ML 1ML (SYR OR VIAL) IVP ONE (16:00)
[2020-05-08] MEDS ORDERED: PROMETHAZINE INJ 25 MG/ML (PHENERGAN) AMP IVP ONE (16:00)
--- NOTE | 2020-05-08 16:15 | NUR ---
This nurse taking over care of patient from PACU, report received from GISELLE Benitez. 1633 this nurse holding pressure to left groin, patient has a hernia to left groin but a ridge near E.P. site is now felt. blood pressure slightly dropped 90's systolic 50's diastolic, no significant change in HR. 20 minutes of continuous pressure held to left groin. There was a small amount of shadowing to right groin so Adilene DESAI held pressure for 20 minutes to right groin starting at 1635. surface lay out technician Minal DESAI notified. Ambar supervisor machine setter notified. Ubaldo from microbiology lab assistant notified. Eli DESAI at bedside as well while we were holding presure. Ubaldo DESAI from microbiology lab assistant came to see if we needed any assistance and helped assess the patient. After we were done holding pressure sandbags applied to bilateral groin for prevention. I will continue closely monitoring the patient. This nurse notified .
[2020-05-08] MEDS: NS IV 1000 ML 1,000 ML IV SCH (18:13)
[2020-05-08] MEDS: APIXABAN 5 MG (ELIQUIS) TABLET PO SCH (21:17)
[2020-05-09] VITALS (30 sets, daily range): BP systolic 91–133; BP diastolic 52–89
[2020-05-09] MEDS: NS IV 1000 ML 1,000 ML IV SCH ×2 (01:51→11:25)
[2020-05-09 03:15] LABS: HEMOGLOBIN 10.7 G/DL (13.3-17.7); MEAN PLATELET VOLUME 10.1 FL (7.4-10.4); WHITE BLOOD COUNT 10.5 10^3/uL (4.3-11.0)
[2020-05-09 03:24] LABS: CHLORIDE 110 MMOL/L (98-107); POTASSIUM 4.1 MMOL/L (3.6-5.0); SODIUM 138 MMOL/L (135-145)
[2020-05-09 03:25] LABS: CALCIUM 7.6 MG/DL (8.5-10.1)
[2020-05-09 03:26] LABS: GLUCOSE 164 MG/DL (70-105)
[2020-05-09 03:27] LABS: CARBON DIOXIDE 19 MMOL/L (21-32)
[2020-05-09 03:29] LABS: GFR ESTIMATED > 60
[2020-05-09 03:30] LABS: BUN/CREATININE RATIO 20
--- NOTE | 2020-05-09 08:10 | Anesthesia-General Post-Op ---
General Patient Condition Mental Status/LOC: Same as Preop Cardiovascular: Satisfactory Nausea/Vomiting: Absent Respiratory: Satisfactory Pain: Controlled Complications: Absent Post Op Complications Complications None Follow Up Care/Instructions Patient Instructions None needed. Anesthesia/Patient Condition Patient Condition Patient is doing well, no complaints, stable vital signs, no apparent adverse anesthesia problems. No complications reported per nursing. KAITLIN HOLCOMB CRNA May 09, 2020 08:10
[2020-05-09] MEDS: APIXABAN 5 MG (ELIQUIS) TABLET PO SCH (08:37)
[2020-05-09] MEDS ORDERED: RIVA20TA PO (09:42)
--- NOTE | 2020-05-09 10:22 | NUR ---
0945 DR MIRANDA ON FLOOR NEW VERBAL ORDERS RECEIVED FOR DISCHARGE TO OBTAIN B/L US PRIOR TO D/C AND CALL WITH RESULTS, D/C ASA ON DISCHARGE, AND CONTINUE ALL OTHER MEDICATIONS, AND CALL OUT XARELTO 20MG 1 TAB PO HS, AND REST X 1 WEEK. RX CALLED TO [facility] THIS RN SPOKE TO PHARMACIST JAIRON.
--- NOTE | 2020-05-09 10:24 | NUR ---
1015 PT NOTED TO BE IN A -FIB HEART RATE 120S-150S, PT DENIES ANY SYMPTOMS OF CHEST PAIN OR SOA, PT STATES HE HASN'T HAD HIS HOME MEDS THIS AM, THIS RN HAD PT TAKE HIS BYSTOLIC AND LISINOPRIL. DR MIRANDA NOTIFIED, NO NEW ORDERS RECEIVED AT THIS TIME, PT LYYING IN BED ULTRASOUND BEING DONE AT THIS TIME. WILL CONTINUE TO MONITOR.
--- NOTE | 2020-05-09 11:29 | Diagnostic Imaging Report ---
PROCEDURE: US Bilateral lower extremity arterial. TECHNIQUE: Multiple real-time grayscale images are obtained through both lower extremity arterial systems with color Doppler imaging and color Doppler spectral analysis. INDICATION: Leg swelling post catheterization. CORRELATION STUDY: None FINDINGS: Color and duplex Doppler ultrasound imaging performed of the bilateral inguinal regions. There is no significant fluid collection that suggest significant hematoma. There is no presence of a pseudoaneurysm. There is normal visualized arterial and venous Doppler waveforms without findings to suggest arteriovenous fistula. There is noted somewhat overall limitations on this study on a technical basis. IMPRESSION: 1. Limited imaging focus of the bilateral inguinal regions demonstrates no significant pseudoaneurysm, arteriovenous fistula formation and/or significant hematoma. Dictated by: Dictated on workstation # [id number]
[2020-05-09] MEDS ORDERED: AMIODARONE INJECTION 150 MG in D5W 100 ML IVPB 100 ML IV NR (12:30)
--- NOTE | 2020-05-09 13:18 | NUR ---
1215 DR MIRANDA NOTIFIED OF PT'S ULTRASOUND RESULTS AND OF CONTINUED A-FIB WITH HEART RATES IN THE 130-140'S. NEW ORDERS RECEIVED TO GIVE BOLUS OF AMIODARONE AND CARDIZEM 10MG IV X 1 DOSE. ORDERS READ BACK AND ENTERED. 1300 MEDICATIONS GIVEN 1320 NEW ORDERS RECEIVED FROM DR MIRANDA TO START CARDIZEM DRIP AND AMIODARONE DRIP. ORDERS READ BACK AND ENTERED.
[2020-05-09] MEDS ORDERED: AMIODARONE INJECTION 450 MG in D5W IV SOLUTION (EXCEL) 250 ML IV SCH (13:30)
[2020-05-09] MEDS ORDERED: dilTIAZem DRIP PRE-MIX 125 ML IV SCH (13:30)
--- NOTE | 2020-05-09 15:02 | NUR ---
1440 PT NOTED TO BE CONVERTED INTO SINUS RHYTHM DR MIRANDA NOTIFIED AND EKG OBTAINED. RESULTS OF EKG SHOW SINUS RHYTHM. DR MIRANDA NOTIFIED OF RESULTS. AWAITING ON ANY NEW ORDERS.
--- NOTE | 2020-05-09 17:35 | NUR ---
Telephone order received from to stop IV cardizem and IV amiodarone and to discharge patient. Patient has remained in NSR. VSS. Discharge packet discussed with patient, patient stated that he does not have any questions att. IV removed tip intact. awaiting patients ride.
--- NOTE | 2020-05-09 18:02 | NUR ---
Patients ride has arrived, this nurse took patient to entrance via wheel chair where we met his ride. Patient leaving ICU floor with this nurse at 1802.
--- NOTE | 2020-05-09 20:06 | Cardiology Discharge Summary ---
Diagnosis/Chief Complaint Date of Admission 05/08/2020 Date of Discharge 05/09/2020 Admission Diagnosis Paroxysmal atrial fibrillation refractory to medical therapy. Final/Discharge Diagnosis Successful pulmonary vein isolation. Chief Complaint/HPI Chief Complaint/HPI AF refractory to medical therapy Discharge Summary Procedures Successful pulmonary vein isolation. Discharge Physical Examination Normal cardiovascular examination. Hospital Course Was the Problem List Reviewed?: Yes Had an episode of atrial fibrillation which subsequently converted on amiodarone and Cardizem. Discussion & Recommendations Discussion Discharge took over thirty minutes to complete. Discussed at length with the patient. Follow up appt.: Dr. Monique in 2-3 weeks. Dicharge Diet: Cardiac Diet Activity as Tolerated: Yes Home Medications Reviewed patient Home Medication Reconciliation performed by pharmacy medication reconciliations carpet technician and/or nursing. Patients Allergies have been reviewed. Discharge Home Medications: Reviewed and agree with Discharge Medication list on patient's Discharge Instruction sheet Condition at discharge Stable. Instructions to patient/family Discussed at length with the patient. Pebbles MONIQUE MD May 09, 2020 20:06
[2020-05-09] MEDS ORDERED: TIMOLOL MALEATE 0.25% (TIMOPTIC) 5 ML DROPS OU SCH (21:00)
[2020-05-09] MEDS ORDERED: VITAMIN D3 125 MCG (5,000 UNITS) CAPSULE PO SCH (21:00)
[2020-05-09] MEDS ORDERED: OCUVITE ADULT PO SCH (21:00)
[2020-05-09] MEDS ORDERED: PANTOPRAZOLE 40 MG (PROTONIX) TAB PO SCH (21:00)
[2020-05-09] MEDS ORDERED: LORATADINE (CLARITIN) 10 MG TAB PO SCH (21:00)
[2020-05-09] MEDS ORDERED: BYSTOLIC 5 MG PO SCH (21:00)
[2020-05-09] MEDS ORDERED: CLOPIDOGREL 75 MG (PLAVIX) TABLET PO SCH (21:00)
[2020-05-09] MEDS ORDERED: DIPHENHYDRAMINE 25 MG PO SCH (21:00)
[2020-05-09] MEDS ORDERED: NON-FORMULARY MEDICATION 1 EA EA (Cholecalciferol (Vitamin D3) (Vitamin D3) 5,000 UNIT) PO SCH (21:00)
[2020-05-09] MEDS ORDERED: NON-FORMULARY MEDICATION 1 EA EA (Dexlansoprazole (Dexilant) 60 MG) PO SCH (21:00)
[2020-05-10] MEDS ORDERED: lisINopril 5 MG (PRINIVIL) TABLET PO SCH (09:00)
[2020-05-11] MEDS ORDERED: dilTIAZem DRIP PRE-MIX 125 ML IV ONE (00:56)
[2020-05-11] MEDS ORDERED: LACTATED RINGERS 1,000 ML IV ONE (00:57)
[2020-05-11] MEDS ORDERED: NS IV 1000 ML 1,000 ML ONE (02:07)
== END 2020-05-09 18:02 | disposition home or self-care (01) ==
LOC: CATH 07:51 → ICU 15:39 → CATH 05-09 18:02
PROVIDERS: ATTEND Internal Medicine Interventional Cardiology
DX: I48.0 Paroxysmal atrial fibrillation (principal); I10 Essential (primary) hypertension; I25.10 Atherosclerotic heart disease of native coronary artery without angina pectoris; G47.33 Obstructive sleep apnea (adult) (pediatric); K21.9 Gastro-esophageal reflux disease without esophagitis; E66.9 Obesity, unspecified; Z68.29 Body mass index [BMI] 29.0-29.9, adult; Z79.02 Long term (current) use of antithrombotics/antiplatelets; Z79.899 Other long term (current) drug therapy; Z98.61 Coronary angioplasty status; Z79.82 Long term (current) use of aspirin; Z11.2 Encounter for screening for other bacterial diseases; Z99.89 Dependence on other enabling machines and devices
CPT/HCPCS: 80048; 80053; 82962; 85027 ×2; 85610; 85730; 87081; 92960; 93005 ×2; 93312; 93320; 93325; 93613; 93620; 93623; 93656; 93662; 93925; 94660 ×2; C1730 ×2; C1732 ×2; C1759; C1894 ×4; 36415

== ENCOUNTER 2020-05-11 00:17 | Observation (INO) | payer BC ==
[2020-05-11] VITALS (8 sets, daily range): BP systolic 106–144; BP diastolic 60–86
[~2020-05-11 00:17] MED LIST changes: +C,E,1CAP PO; +CLOP75TA69 PO; +DIPH25CA79 PO; +RIVA20TA PO
[2020-05-11] MEDS ORDERED: AMIODARONE 200 MG (CORDARONE) TAB PO SCH (11:15)
[2020-05-11] MEDS ORDERED: dilTIAZem120 MG (CARDIZEM CD) CAP PO SCH (11:15)
[2020-05-11] MEDS ORDERED: ATOR80TA76 PO (13:34)
[2020-05-11] MEDS ORDERED: RIVA20TA PO (13:34)
[2020-05-11] MEDS ORDERED: BIMA2.5D4 OU (13:34)
[2020-05-11] MEDS ORDERED: LISI2.5T PO (13:34)
--- NOTE | 2020-05-11 13:34 | NUR ---
SPOKE WITH THE PT (HE HAS HIS HOME MEDS WITH HIM) AND WENT THRU THE EXT MED HISTORY TO COMPLETE THE MED REC PT GETS MOST OF HIS MEDICATION THRU [facility]. THE FOLLOWING ARE FILL DATES FROM [facility] THAT ARE NOT LISTED ON THE EXT MED HISTORY: 02-23-2020 DEXILANT 60MG #90/90DS 03-08-2020 BYSTOLIC 5MG #90/90DS 03-13-2020 ATORVASTATIN 80MG #90/90DS 04-03-2020 PLAVIX 75MG #90/90DS PT WAS RECENTLY HERE (05/09/2020) AND HOME MEDS WERE ENTERED IN THE HEEL SEAT SANDER AND WHEN PT WAS BROUGHT TO THE FLOOR THEY WERE RELABELED FOR IN PATIENT USE. THEY ARE STILL IN THE BAGS FROM WHEN SCOTT Spencer RELABELED THEM PT VERIFIES HE DOES TAKE LORATADINE AND BENADRYL AT NIGHT OTC MEDS: BENADRYL LORATADINE OCUVITE
--- NOTE | 2020-05-11 14:14 | Diagnostic Imaging Report ---
Indication: Arrhythmia Portable chest 1:29 AM There is a loop recorder projecting over the left lower chest. Heart size and pulmonary vascularity are normal. Lungs are clear. There are no effusions or pneumothoraces. IMPRESSION: No acute abnormalities the chest Dictated by: Dictated on workstation # [id number]
[2020-05-11] MEDS ORDERED: CLOPIDOGREL 75 MG (PLAVIX) TABLET PO SCH (15:08)
[2020-05-11] MEDS ORDERED: dilTIAZem DRIP PRE-MIX 125 ML IV SCH (15:08)
[2020-05-11] MEDS ORDERED: NS IV 1000 ML 1,000 ML IV SCH (15:08)
--- NOTE | 2020-05-11 15:40 | History & Physical-Hospitalist ---
History of Present Illness HPI/Chief Complaint Matthew Aviles is a 64-year-old male past medical history of paroxysmal atrial fibrillation who presented with palpitations and was admitted with atrial fibrillation with rapid ventricular response. He reports that he could feel his heart fluttering. He reports some shortness of breath. He denies any chest pain. He denies any cough. He denies any fevers or chills. He denies any nausea or vomiting. He denies any abdominal pain. He says he has been compliant with his medications. Source: patient Exam Limitations: no limitations Date Seen 05/11/20 Time Seen by a Provider: 09:25 Attending Physician Mireille Walker MD PCP Holland Meyer MD Referring Physician Date of Admission May 11, 2020 at 01:30 Home Medications & Allergies Home Medications Reviewed patient Home Medication Reconciliation performed by pharmacy medication reconciliations traffic analysis technician and/or nursing. Patients Allergies have been reviewed. Allergies Allergies Coded Allergies No Known Drug Allergies (Esybksfyyo88/10/19) Past Hcvseog-Tuglbc-Bkmsyy Hx Past Med/Social Hx: Reviewed Nursing Past Med/Soc Hx Patient Social History Recent Hopitalizations: No Immunizations Up To Date Date of Influenza Vaccine: Jun 22, 2019 Past Medical History Surgeries: Appendectomy, Coronary Stent, Tonsillectomy Currently Using CPAP: Yes Cardiac: Atrial Fibrillation, Coronary Artery Disease, Hypertension Gastrointestinal: Gastroesophageal Reflux History of Blood Disorders: No Adverse Reaction to Blood Stevenson: No Review of Systems Constitutional: no symptoms reported EENTM: no symptoms reported Respiratory: no symptoms reported Cardiovascular: palpitations Gastrointestinal: no symptoms reported Genitourinary: no symptoms reported Musculoskeletal: no symptoms reported Skin: no symptoms reported Psychiatric/Neurological: No Symptoms Reported Physical Exam Physical Exam Vital Signs Vital Signs - First Documented 05/11/20 05/11/20 07:00 08:00 Temp 36.3 Pulse 81 Resp 15 B/P (MAP) 110/60 (77) Pulse Ox 99 O2 Delivery Room Air Capillary Refill : Less Than 3 Seconds Height, Weight, BMI Height: 6'0.00" Weight: 225lbs. 0.0oz. 102.708442oq; 29.89 BMI Method: General Appearance: No Apparent Distress, WD/WN HEENT: PERRL/EOMI, Pharynx Normal Neck: Normal Inspection, Supple Respiratory: Lungs Clear, Normal Breath Sounds, No Respiratory Distress Cardiovascular: Regular Rate, Rhythm, No Edema, No Murmur Gastrointestinal: Normal Bowel Sounds, Non Tender, Soft Extremity: Normal Inspection, Non Tender, No Pedal Edema Neurologic/Psychiatric: Alert, Oriented x3, No Motor/Sensory Deficits, Normal Mood/Affect Skin: Normal Color, Warm/Dry Results Results/Procedures Labs Patient resulted labs reviewed. Imaging: Reviewed Imaging Report Assessment/Plan Admission Diagnosis atrial fibrillation with rapid ventricular response Admission Status: Inpatient Order (span 2 midnights) Reason for Inpatient Admission: A. fib with RVR requiring cardiology intervention Assessment and Plan atrial fibrillation with rapid ventricular response Recently admitted for ablation Cardiology consulted, appreciate assistance started on diltiazem and amiodarone converted to normal sinus rhythm this morning Continue Xarelto Diagnosis/Problems Diagnosis/Problems (1) Paroxysmal atrial fibrillation with RVR Status: Acute MIREILLE WALKER MD May 11, 2020 15:40
[2020-05-11 15:42] LABS: BASOPHILS % (AUTO) 1 % (0-10); EOSINOPHILS % (AUTO) 1 % (0-10); HEMATOCRIT 29 % (40-54); HEMOGLOBIN 9.9 G/DL (13.3-17.7); LYMPHOCYTES # (AUTO) 2.9 X 10^3 (1.0-4.0); LYMPHOCYTES % (AUTO) 28 % (12-44); MEAN CORPUSCULAR HEMOGLOBIN 30 PG (25-34); MEAN CORPUSCULAR HGB CONC 34 G/DL (32-36); MEAN CORPUSCULAR VOLUME 87 FL (80-99); MEAN PLATELET VOLUME 9.9 FL (7.4-10.4); MONOCYTES % (AUTO) 8 % (0-12); NEUTROPHILS # (AUTO) 6.6 X 10^3 (1.8-7.8); NEUTROPHILS % (AUTO) 62 % (42-75); PLATELET COUNT 238 10^3/uL (130-400); WHITE BLOOD COUNT 10.5 10^3/uL (4.3-11.0)
[2020-05-11 15:43] LABS: BASOPHILS # (AUTO) 0.1 10^3/uL (0.0-0.1); EOSINOPHILS # (AUTO) 0.1 10^3/uL (0.0-0.3); MONOCYTES # (AUTO) 0.9 X 10^3 (0.0-1.0)
[2020-05-11 15:58] LABS: ALANINE AMINOTRANSFERASE 19 U/L (0-55); ALBUMIN 3.9 GM/DL (3.2-4.5); ALKALINE PHOSPHATASE 64 U/L (40-136); BILIRUBIN,TOTAL 0.5 MG/DL (0.1-1.0); BUN/CREATININE RATIO 18; CALCIUM 8.7 MG/DL (8.5-10.1); CARBON DIOXIDE 23 MMOL/L (21-32); CHLORIDE 108 MMOL/L (98-107); CREATININE SERUM 0.96 MG/DL (0.60-1.30); GFR ESTIMATED > 60; GLUCOSE 130 MG/DL (70-105); POTASSIUM 3.6 MMOL/L (3.6-5.0); SODIUM 141 MMOL/L (135-145); TOTAL PROTEIN 6.2 GM/DL (6.4-8.2)
[2020-05-11] MEDS ORDERED: DILT-27 PO (16:58)
[2020-05-11] MEDS ORDERED: AMIO200T4 PO (16:58)
[2020-05-11] MEDS ORDERED: RIVAROXABAN 20 MG TABLET (XARELTO) PO SCH (17:00)
--- NOTE | 2020-05-11 18:25 | Consultation-Cardiology ---
HPI-Cardiology Cardiology Consultation: Date of Consultation 05/11/20 Date of Admission Attending Physician Masha Cerda MD Admitting Physician Holland Meyer MD Consulting Physician Pebbles MONIQUE MD HPI: Time Seen by a Provider: 09:30 Chief Complaint: Palpitations This is a 64-year-old gentleman with history of paroxysmal atrial fibrillation refractory to medical therapy. Recent atrial fibrillation ablation done on 05/08/2020. Complains of palpitations. No active smoking. Pertinent family history is negative. Review of Systems-Cardiology Review of Systems Constitutional: As described under HPI; No As described under HPI, No no symptoms reported, No chills, No fever, No lightheadedness Eyes: No As described under HPI, No no symptoms reported, No blindness, No bl urred vision, No contact lenses, No drainage, No decreased acuity, No foreign body sensation, No pain, No vision change Ears/Nose/Throat: No As described under HPI, No no symptoms reported, No chronic hearing loss, No ear discharge, No ear pain, No nasal drainage, No ulcerations Respiratory: No no symptoms reported; As described under HPI; No As described under HPI, No cough, No orthopnea, No shortness of breath, No SOB with excertion Cardiovascular: No no symptoms reported; As described under HPI; No As described under HPI, No chest pain, No edema, No irregular heart rate, No lightheadedness; palpitations Gastrointestinal: No no symptoms reported, No As described under HPI, No abdomen distended, No abdominal pain, No blood streaked bowels, No constipation, No diarrhea, No nausea, No vomiting, No stool coloration changes Genitourinary: No As described under HPI, No burning, No dysuria, No discharge, No frequency, No flank pain, No hematuria, No urgency Skin: No rash, No skin related problems, No ulcerations Psychiatric/Neurological: No anxiety, No depression, No seizure, No focal weakness, No syncope Hematologic: No bleeding abnormalities TIC-Xkfeme-Cwefyp Hx Immunizations Up To Date Date of Influenza Vaccine: Jun 22, 2019 Past Medical History PMH As described under Assessment. Allergies and Home Medications Allergies Coded Allergies: No Known Drug Allergies (Unverified , 07/01/19) Home Medications Amiodarone HCl 200 Mg Tablet, 200 MG PO DAILY Prescribed by: [facility] on 05/11/201657 Atorvastatin Calcium 80 Mg Tablet, 80 MG PO HS, (Reported) Bimatoprost 2.5 Ml Drops, 1 DROP OU HS, (Reported) C,E,Zinc,Copper 11/Nqgby8w/Lut 1 Each Capsule, 1 EACH PO HS, (Reported) Clopidogrel Bisulfate 75 Mg Tablet, 75 MG PO HS, (Reported) Dexlansoprazole 60 Mg Cap.dr.bp, 60 MG PO HS, (Reported) Diltiazem HCl 120 Mg Cap.er.24h, 120 MG PO DAILY Prescribed by: [facility] on 05/11/201657 Diphenhydramine HCl 25 Mg Capsule, 25 MG PO HS, (Reported) Lisinopril 2.5 Mg Tablet, 2.5 MG PO HS, (Reported) Loratadine 10 Mg Tablet, 10 MG PO HS, (Reported) Nebivolol HCl 5 Mg Tablet, 5 MG PO HS, (Reported) Rivaroxaban 20 Mg Tablet, 20 MG PO HS, (Reported) Patient Home Medication List Home Medication List Reviewed: Yes Physical Exam-Cardiology Physical Exam Vital Signs/I&O Capillary Refill : Less Than 3 Seconds Constitutional: appears stated age, AAO x 3; No apparent distress; well- developed, well-nourished HEENT: PERRL; No discharge; hearing is well preserved, oral hygience is good; No ulceration, No xanthelasmas are seen Neck: No carotid bruit; carotid pulses are 2 + bilaterally Respiratory: chest is bilaterally symmetric, lungs clear to auscultation Cardiovascular: regular rate-rhythm, S1 and S2 Gastrointestinal: soft, audible bowel sounds; No spleenomegaly Rectal: deferred Extremities: normal range of motion, non-tender, normal inspection; No clubbing, No cyanosis; no lower extremity edema bilateral; No significant edema Neurologic/Psychiatric: no motor/sensory deficits, alert, normal mood/affect, oriented x 3, power is 5/5 both on sides Skin: normal color, warm/dry; No rash, No ulcerations Data Review Labs ECG Impression ECG Initial ECG Impression: Atrial Fibrillation w/RVR A/P-Cardiology Assessment/Admission Diagnosis Paroxysmal atrial fibrillation with RVR Plan Amiodarone, Cardizem infusion and continue Eliquis. Subsequently converted to sinus rhythm. Patient will be discharged on amiodarone. Follow-up in the off ice in 2-3 weeks. Thank you for your consultation. Please call me if you have any questions. Shira Monique MD, FACP, FACC, FSCAI, FHRS, CCDS Interventional Cardiology Cardiac Electrophysiology Vascular Medicine and Endovascular Interventions Pebbles MONIQUE MD May 11, 2020 18:25
--- NOTE | 2020-05-23 16:57 | Discharge Summary ---
Discharge Summary Hospital Course Was the Problem List Reviewed?: Yes Problems/Dx: (1) Paroxysmal atrial fibrillation with RVR Status: Acute Hospital Course Date of Admission: May 11, 2020 at 02:00 Admission Diagnosis : paroxysmal atrial fibrillation with rapid ventricular response Family Physician/Provider: Muriel Carvalho Date of Discharge: 05/23/20 Discharge Diagnosis: paroxysmal atrial fibrillation with rapid ventricular response Hospital Course: Matthew Aviles is a 64 year old male he was recently admitted for an A. fib ablation who presented with A. fib with RVR. He was started on Cardizem and amiodarone and subsequently converted to normal sinus rhythm. He was continued on oral diltiazem and amiodarone. Cardiology was consulted and assisted in his care. He will follow-up with cardiology as an outpatient. He was discharged in stable condition. Labs and Pending Lab Test: Home Meds Active Amiodarone HCl 200 Mg Tablet 200 Mg PO DAILY 30 Days Diltiazem 24Hr ER (Diltiazem HCl) 120 Mg Cap.er.24h 120 Mg PO DAILY 30 Days Reported Lumigan (Bimatoprost) 2.5 Ml Drops 1 Drop OU HS Xarelto (Rivaroxaban) 20 Mg Tablet 20 Mg PO HS Lisinopril 2.5 Mg Tablet 2.5 Mg PO HS Atorvastatin Calcium 80 Mg Tablet 80 Mg PO HS Ocuvite Adult 50 Plus Softgel (C,E,Zinc,Copper 11/Cxhet8f/Lut) 1 Each Capsule 1 Each PO HS Benadryl (Diphenhydramine HCl) 25 Mg Capsule 25 Mg PO HS Plavix (Clopidogrel Bisulfate) 75 Mg Tablet 75 Mg PO HS Claritin (Loratadine) 10 Mg Tablet 10 Mg PO HS Dexilant (Dexlansoprazole) 60 Mg Cap.dr.bp 60 Mg PO HS Bystolic (Nebivolol HCl) 5 Mg Tablet 5 Mg PO HS Assessment/Pt Instructions take medications as prescribed. Follow up with cardiology. Discharge Planning: <30 minutes discharge planning Discharge Instructions Discharge Diet: No Restrictions Activity as Tolerated: Yes Discharge Physical Examination General Appearance: No Apparent Distress, WD/WN HEENT: PERRL/EOMI, Pharynx Normal Respiratory: Lungs Clear, Normal Breath Sounds, No Respiratory Distress Cardiovascular: Regular Rate, Rhythm, No Edema, No Murmur Gastrointestinal: Normal Bowel Sounds, Non Tender, Soft Extremity: Normal Inspection, Non Tender, No Pedal Edema Skin: Normal Color, Warm/Dry Neurologic/Psychiatric: Alert, Oriented x3, No Motor/Sensory Deficits, Normal Mood/Affect Allergies: Coded Allergies: No Known Drug Allergies (Unverified , 07/01/19) Discharge Summary Date of Admission May 11, 2020 at 02:00 Date of Discharge May 11, 2020 at 16:55 Discharge Date: May 11, 2020 Discharge Time: 16:55 Admission Diagnosis atrial fibrillation with rapid ventricular response Consults/Procedures Consulations cardiology Discharge Diagnosis atrial fibrillation with rapid ventricular response (1) Paroxysmal atrial fibrillation with RVR Status: Acute MIREILLE WALKER MD May 23, 2020 16:57
== END 2020-05-11 16:55 | disposition home or self-care (01) ==
LOC: ER 00:17 → EDUNIT# 00:17 → ICU 01:30 → UNDOADMOB 01:30 → ICU 02:00
PROVIDERS: ADMIT Internal Medicine; ATTEND Internal Medicine
DX: I48.0 Paroxysmal atrial fibrillation (principal); I10 Essential (primary) hypertension; I25.10 Atherosclerotic heart disease of native coronary artery without angina pectoris; I48.91 Unspecified atrial fibrillation; K21.9 Gastro-esophageal reflux disease without esophagitis; Z79.899 Other long term (current) drug therapy
CPT/HCPCS: 71045; 80053; 85025; 93005; 96365; 99285; G0378; 36415

== ENCOUNTER → 2022-02-14 | Outpatient (CLI) | payer BC ==
[~2022-02-14] VITALS: Ht 182.9 cm; Wt 104.5 kg
[~2022-02-14] MED LIST changes: +AMIO200T65 PO; +BIMA2.5D4 OU; +DILT-27 PO; +DILT120T3 PO; -LISI-556 PO; +LISI2.5T13 PO; +LISI5TAB20 PO; +MTP100TCR PO
== END | disposition home or self-care (01) ==
LOC: PREOP 07:05
PROVIDERS: ATTEND Specialist
DX: Z01.818 Encounter for other preprocedural examination (principal)

== ENCOUNTER 2022-02-22 08:34 | Day surgery (SDC) | payer BC ==
[~2022-02-22] VITALS: Ht 182.9 cm; Wt 104.5 kg
[2022-02-22] MEDS ORDERED: MOXIFLOXACIN OPHTH SOLN 5 MG/ML 0.3 ML SYRINGE OP ONE (09:45)
[2022-02-22] MEDS ORDERED: POVIDONE (BETADINE) OPHTH SOLN 5% 30 ML OP ONE (09:45)
[2022-02-22] MEDS ORDERED: TIMOLOL MALEATE 0.5% 5 ML (TIMOPTIC) BTL OU PRN (09:45)
[2022-02-22] MEDS ORDERED: LIDOCAINE PF 1% 2 ML VIAL IR PRN (09:45)
[2022-02-22] MEDS: TETRACAINE 0.5% OPHTH SOLN 4 ML BTL (SINGLE DOSE ONLY) OU PRN ×4 (09:52→10:14)
[2022-02-22 09:54] VITALS: BP 124/85
[2022-02-22] MEDS: PHENYLEPHRINE 10% OPHTH (NEO-SYN) 5 ML BTL OU SCH ×3 (10:02→10:14)
[2022-02-22] MEDS: TROPICAMIDE 1% OPH SOLN (MYDRIACYL) 15 ML BTL OP SCH ×3 (10:02→10:14)
--- NOTE | 2022-02-22 10:26 | Ophthalmologist Pre-Op Note ---
Pre-Operative Progress Note H&P Reviewed The H&P was reviewed, patient examined and no changes noted. Date H&P Reviewed: Feb 22, 2022 Time H&P Reviewed: 10:26 Pre-Op Dx Cataract, Right Eye REBA RUEDA MD Feb 22, 2022 10:26
[2022-02-22] MEDS ORDERED: MIDAZOLAM 2 MG/2 ML (VERSED) VIAL ONE (10:30)
--- NOTE | 2022-02-22 10:50 | Ophthalmology Operative Report ---
Cataract removal/placement IOL PREOPERATIVE DIAGNOSIS: Cataract Right Eye POSTOPERATIVE DIAGNOSIS: Cataract Right Eye PROCEDURE: Cataract removal and placement of posterior chamber implant, right eye SURGEON: Shahbaz Rueda ANESTHESIA: Topical with sedation COMPLICATIONS: None ESTIMATED BLOOD LOSS: Minimal DESCRIPTION OF PROCEDURE: After proper informed consent was obtained, the patient, a 66 male, was taken to the Operating Room and the right eye was anesthetized with tetracaine. The right eye was then prepped and draped in the usual manner. A wire lid speculum was placed. A paracentesis was made at the left hand position. Preservative free lidocaine was injected into the anterior chamber followed by viscoelastic. A clear corneal incision was made in the temporal position. A capsulorrhexis was preformed and the central nuclear and cortical material were removed. The posterior capsule was polished and Richmond 13.5 AU00T0 IOL was placed into the capsular bag. The residual viscoelastic was aspirated and balanced saline solution was injected into the anterior chamber. Moxifloxacin was injected into the anterior chamber. The wound was checked and found to be water tight. The patient tolerated the procedure well without complications. SHAHBAZ RUEDA MD Feb 22, 2022 10:50
[2022-02-22 11:00] VITALS: BP 123/84
[2022-02-22] MEDS ORDERED: acetaZOLAMIDE ER 500 MG CAP (DIAMOX SEQUELS) PO ONE (11:15)
== END 2022-02-22 11:01 | disposition home or self-care (01) ==
LOC: SDC 08:34
PROVIDERS: ATTEND Specialist
DX: H25.9 Unspecified age-related cataract (principal); Z79.01 Long term (current) use of anticoagulants
CPT/HCPCS: 66984; V2632

== ENCOUNTER 2022-03-08 09:10 | Day surgery (SDC) | payer BC ==
--- NOTE | 2022-03-04 07:19 | Anesthesia-General Post-Op ---
MAC Significant Intra-Op Events Notes late entry 02-22-22 at 1100 Patient Condition Mental Status/LOC: Same as Preop Cardiovascular: Satisfactory Nausea/Vomiting: Absent Respiratory: Satisfactory Pain: Controlled Complications: Absent Post Op Complications Complications None Follow Up Care/Instructions Patient Instructions None needed. Anesthesiology Discharge Order Discharge Order Patient is doing well, no complaints, stable vital signs, no apparent adverse anesthesia problems. No complications reported per nursing. JEAN PIERRE MAYA CRNA Mar 04, 2022 07:19
[~2022-03-08] VITALS: Ht 183 cm; Wt 104.5 kg
[2022-03-08] MEDS ORDERED: POVIDONE (BETADINE) OPHTH SOLN 5% 30 ML OP ONE (09:15)
[2022-03-08] MEDS ORDERED: TIMOLOL MALEATE 0.5% 5 ML (TIMOPTIC) BTL OU PRN (09:15)
[2022-03-08] MEDS ORDERED: MOXIFLOXACIN OPHTH SOLN 5 MG/ML 0.3 ML SYRINGE OP ONE (09:15)
[2022-03-08] MEDS ORDERED: LIDOCAINE PF 1% 2 ML VIAL IR PRN (09:15)
[2022-03-08] MEDS: TETRACAINE 0.5% OPHTH SOLN 4 ML BTL (SINGLE DOSE ONLY) OU PRN ×4 (09:26→09:48)
[2022-03-08 09:31] VITALS: BP 129/82
[2022-03-08] MEDS: TROPICAMIDE 1% OPH SOLN (MYDRIACYL) 15 ML BTL OP SCH ×3 (09:36→09:48)
[2022-03-08] MEDS: PHENYLEPHRINE 10% OPHTH (NEO-SYN) 5 ML BTL OU SCH ×3 (09:36→09:48)
--- NOTE | 2022-03-08 10:02 | Ophthalmologist Pre-Op Note ---
Pre-Operative Progress Note H&P Reviewed The H&P was reviewed, patient examined and no changes noted. Date H&P Reviewed: Mar 08, 2022 Time H&P Reviewed: 10:02 Pre-Op Dx Cataract, Left Eye REBA RUEDA MD Mar 08, 2022 10:02
[2022-03-08] MEDS ORDERED: MIDAZOLAM 2 MG/2 ML (VERSED) VIAL ONE (10:10)
--- NOTE | 2022-03-08 10:31 | Ophthalmology Operative Report ---
Cataract removal/placement IOL PREOPERATIVE DIAGNOSIS: Cataract Left Eye POSTOPERATIVE DIAGNOSIS: Cataract Left Eye PROCEDURE: Cataract removal and placement of posterior chamber implant, left eye SURGEON: Shahbaz Rueda ANESTHESIA: Topical with sedation COMPLICATIONS: None ESTIMATED BLOOD LOSS: Minimal DESCRIPTION OF PROCEDURE: After proper informed consent was obtained, the patient, a 66 male, was taken to the Operating Room and the left eye was anesthetized with tetracaine. The left eye was then prepped and draped in the usual manner. A wire lid speculum was placed. A paracentesis was made at the left hand position. Preservative free lidocaine was injected into the anterior chamber followed by viscoelastic. A clear corneal incision was made in the temporal position. A capsulorrhexis was preformed and the central nuclear and cortical material were removed. The posterior capsule was polished and an Richmond 14.0 AU00T0 was placed into the capsular bag. The residual viscoelastic was aspirated and balanced saline solution was injected into the anterior chamber. Moxifloxacin was injected into the anterior chamber. The wound was checked and found to be water tight. The patient tolerated the procedure well without complications. SHAHBAZ RUEDA MD Mar 08, 2022 10:31
[2022-03-08 10:42] VITALS: BP 124/79
[2022-03-08] MEDS ORDERED: acetaZOLAMIDE ER 500 MG CAP (DIAMOX SEQUELS) PO ONE (11:15)
--- NOTE | 2022-03-08 12:46 | Anesthesia-General Post-Op ---
MAC Patient Condition Mental Status/LOC: Same as Preop Cardiovascular: Satisfactory Nausea/Vomiting: Absent Respiratory: Satisfactory Pain: Controlled Complications: Absent Post Op Complications Complications None Follow Up Care/Instructions Patient Instructions None needed. Anesthesiology Discharge Order Discharge Order Patient is doing well, no complaints, stable vital signs, no apparent adverse anesthesia problems. No complications reported per nursing. KAITLIN HOLCOMB CRNA Mar 08, 2022 12:46
== END 2022-03-08 10:42 | disposition home or self-care (01) ==
LOC: SDC 09:10
PROVIDERS: ATTEND Specialist
DX: H25.9 Unspecified age-related cataract (principal); Z79.01 Long term (current) use of anticoagulants
CPT/HCPCS: 66984; V2632

== ENCOUNTER 2022-07-16 07:53 | Day surgery (SDC) | payer BC ==
[~2022-07-16] VITALS: Ht 182.9 cm; Wt 112.4 kg
[2022-07-16] VITALS (19 sets, daily range): BP systolic 112–152; BP diastolic 65–89
[2022-07-16] MEDS ORDERED: NS IV 1000 ML 1,000 ML ONE (08:05)
[2022-07-16] MEDS ORDERED: HEParin (CATH LAB) 2,000 ML IV ONE (08:05)
[2022-07-16] MEDS ORDERED: LIDOCAINE 1% INJ 30 ML (XYLOCAINE) VIAL ONE (08:05)
[2022-07-16] MEDS ORDERED: NS IV 1000 ML 1,000 ML IV SCH (08:15)
[2022-07-16 08:27] LABS: HEMATOCRIT 45 % (40-54); HEMOGLOBIN 15.3 g/dL (13.3-17.7); MEAN CORPUSCULAR HEMOGLOBIN 30 pg (25-34); MEAN CORPUSCULAR HGB CONC 34 g/dL (32-36); MEAN CORPUSCULAR VOLUME 89 fL (80-99); PLATELET COUNT 243 10^3/uL (130-400); WHITE BLOOD COUNT 8.5 10^3/uL (4.3-11.0)
[2022-07-16] MEDS ORDERED: MULT-1076 PO (08:31)
[2022-07-16] MEDS ORDERED: MAGN400T39 PO (08:31)
[2022-07-16] MEDS ORDERED: LUTE20CA2 PO (08:31)
[2022-07-16] MEDS ORDERED: VITA-189 PO (08:31)
[2022-07-16] MEDS ORDERED: DILT360C36 PO (08:31)
[2022-07-16] MEDS ORDERED: ASPI-1238 PO (08:31)
[2022-07-16] MEDS ORDERED: CHOL500050 PO (08:31)
[2022-07-16 08:45] LABS: INR 1.1 (0.8-1.4)
[2022-07-16 08:55] LABS: ALBUMIN 4.4 GM/DL (3.2-4.5); BILIRUBIN,TOTAL 0.5 MG/DL (0.1-1.0); CALCIUM 9.8 MG/DL (8.5-10.1); CREATININE SERUM 1.18 MG/DL (0.60-1.30); POTASSIUM 4.3 MMOL/L (3.6-5.0); TOTAL PROTEIN 7.7 GM/DL (6.4-8.2)
[2022-07-16] MEDS ORDERED: MIDAZOLAM 5 MG/5 ML (VERSED) VIAL ONE (10:26)
[2022-07-16] MEDS ORDERED: fentaNYL INJ 100 MCG/2 ML AMP ONE (10:26)
[2022-07-16] MEDS ORDERED: HEParin 1000 UNIT/ML (10ML VIAL) FOR BOLUS ONE (11:35)
[2022-07-16] MEDS ORDERED: EPTIFIBATIDE BOLUS 20 ML IV ONE (11:36)
[2022-07-16] MEDS ORDERED: NITRO DRIP 25000 MCG/D5W 0 ML IV ONE (11:46)
[2022-07-16] MEDS ORDERED: CLOPIDOGREL 300 MG (PLAVIX) TABLET PO ONE (12:12)
[2022-07-16] MEDS ORDERED: ASPIRIN 81 MG CHEW (CHILDREN'S ASA) ONE (12:13)
--- NOTE | 2022-07-16 12:13 | Cardiac Procedure Note-CS/ASA ---
Pre-Procedure Note Pre-Op Procedure Note Date of Available H&P: Jul 11, 2022 Date H&P Reviewed: Jul 16, 2022 Time H&P Reviewed: 10:30 History & Physical: H&P Reviewed, No changes noted Conscious Sedation Pre-Proced ASA Score 3 For ASA 3 and 4: Consider anesthesia and medical clearance. Also, for patients with a history of failed moderate sedation consider anesthesia. Airway Lungs Heart ASA score ASA 1: a normal healthy patient ASA 2: a patient with a mild systemic disease (mid diabetes, controlled hypertension, obesity ASA 3: a patient with a severe systemic disease that limits activity (angina, COPD, prior Myocardial infarction) ASA 4: a patient with an incapacitating disease that is a constant threat to life (CHF, renal failure) ASA 5: a moribund patient not expected to survive 24 hrs. (ruptured aneurysm) ASA 6: a declared brain- patient whose organs are being harvested. For emergent operations, add the letter E after the classification Mallampati Classification Grade 2 Sedation Plan Analgesia, Amnesia, Plan communicated to team members The patient is an appropriate candidate to undergo the planned procedure, sedation, and anesthesia. The patient immediately re-assessed prior to indication. TANO DELGADO MD FACP FAC CCDS Jul 16, 2022 12:13
[2022-07-16] MEDS ORDERED: PATIENT MAY USE OWN MEDS, ALL PO SCH (12:15)
[2022-07-16] MEDS: NS IV 1000 ML 1,000 ML IV SCH ×2 (13:18→16:53)
[2022-07-16] MEDS ORDERED: MAGN500T PO (14:03)
[2022-07-16] MEDS ORDERED: ATROPINE INJECTION 1 MG/10 ML SYR (ABBOTT) ONE (14:29)
[2022-07-16] MEDS ORDERED: FLU QUAD HIGH DOSE 240 MCG/0.7 ML 2022-23 (FLUZONE) IM ONE (14:30)
[2022-07-16] MEDS ORDERED: fentaNYL INJ 100 MCG/2 ML AMP IVP NR (14:30)
--- NOTE | 2022-07-16 16:07 | CARDIAC CATHETERIZATION ---
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 He has been experiencing increasing shortness of breath and chest discomfort with exertion. He has a prior history of coronary artery disease and has had stenting of the ramus intermedius artery with a drug-eluting stent in 2019. Informed consent was obtained for cardiac catheterization, and possible ad hoc coronary intervention. DESCRIPTION OF PROCEDURE: He was brought to the cardiac catheterization laboratory in a fasting state. Right groin was prepared and draped in the usual sterile fashion. Lidocaine 1% was used for local anesthesia. Modified Seldinger technique was used to advance a 5-Canadian sheath into the right femoral artery. Angiography of the right femoral artery was carried out through the sheath. We used a 5-Canadian JL4 catheter for left coronary angiography, 5-Canadian JR4 catheter for right coronary angiography. We used 5-Canadian pigtail catheter for left heart catheterization and left ventricular angiography. Subsequently, we carried out percutaneous intervention to the right coronary artery that is described below. PERCUTANEOUS INTERVENTION TO THE RIGHT CORONARY: We exchanged the sheath over a wire for a 6-Canadian sheath. We gave 6000 units of intravenous heparin. A double bolus of Integrilin was given during the procedure. We used a 6-Canadian JR4 guide catheter with side holes to engage the right coronary artery. We advanced a BMW wire across the lesions in the proximal and mid right coronary artery and the tip of the wire was placed in the distal vessel. We stented the most distal segment with Skypoint 3.5 x 18 mm stent. The stent was deployed at 16 atmospheres. We stented the more proximal segment of the right coronary artery with a Skypoint 3.5 x 38 mm stent. The stent was made to slightly overlap with the distal stent. The stent was deployed at 18 atmospheres. We then collapsed the balloon and advanced it slightly to cover the area of overlap. Stent balloon was inflated up to 18 atmospheres. The stent balloon was then collapsed and pulled back such that the proximal edge of the balloon was slightly outside of the proximal edge of the standard segment and the stent balloon was inflated to 20 atmospheres. The stent balloon was then collapsed and removed. Subsequent angiography revealed 0% residual stenosis and a segment that was exhibiting up to about 75% stenosis. Flow throughout the vessel is normal. He tolerated the procedure well. The sheath was sutured in place and he was transferred to the floor for manual sheath removal. HEMODYNAMICS: Left ventricular end-diastolic pressure following coronary angiography was 10 mmHg. There is no significant pressure gradient on pullback across the aortic valve. LEFT VENTRICULAR ANGIOGRAPHY: Left ventricular angiography was carried out in the right anterior oblique projection. Global left ventricular systolic function is fairly well preserved. Ejection fraction is estimated to be 50% to 55%. CORONARY ANGIOGRAPHY: Left main coronary artery does not exhibit significant disease. Left anterior descending artery has approximately 30% stenosis in its proximal portion. A ramus intermedius branch has a widely patent stent in its proximal and mid portion. The left circumflex artery is nondominant and does not exhibit significant disease. Right coronary artery is dominant and had a long lesion in its proximal and mid portion with stenosis up to approximately 75%. This was stented with overlapping stents that are described above. This reduced the stenosis to 0% residual and flow throughout the vessel was normal. Right coronary artery is dominant. CONCLUSIONS: 1. Coronary artery disease primarily consisting of a long, up to 75% stenosis in the proximal and mid right coronary that was stented with overlapping stents (Skypoint 3.5 x 18 mm distally and Skypoint 3.5 x 38 mm proximally). The left anterior descending artery has 30% proximal stenosis. Ramus intermedius artery has a widely patent stent that was placed in 2019. Left circumflex artery does not exhibit significant disease. Right coronary artery is dominant. 2. Left ventricular end-diastolic pressure 10 mmHg. 3. Left ventricular ejection fraction 50% to 55%. DISCUSSION AND RECOMMENDATIONS: Risk factor modification has been reviewed. Current regimen is being continued, to that Plavix has been added. He is currently on aspirin, Plavix and Xarelto. We will continue this regimen for a few days. We will then discontinue aspirin and continue Xarelto and Plavix. The idea would be to continue Plavix for a year and then replace it with aspirin. Xarelto will be continued without interruption given his history of chronic permanent atrial fibrillation. Job ID: [id number] DocumentID: [id number] Dictated Date: 07/16/2022 12:27:12 Early Childhood Education Coordinator Date: 07/16/2022 16:06:31 Dictated By: TANO DELGADO MD, MA, FACP, FACC, MTDD
--- NOTE | 2022-07-16 16:51 | Tele-ICU Progress Note ---
Subjective Date Seen by a Provider: Jul 16, 2022 Time Seen by a Provider: 16:50 Subjective/Events-last exam (Tele-ICU Physician , consultation) Available chart/ vitals / labs / Images reviewed H&P is from ER notes Patient's information available about PMH, allergy reviewed in EMR. ROS as per chart and RN report Video assessment done using teleICU camera, rest of exam as per RN Discussed with RN. Patient admitted with reportedly some chest discomfort and he has a history of chronic atrial fibrillation. He underwent cardiac catheterization and underwent PCI of right proximal LAD and mid RCA. I made a video visit and discussed with the patient and he states no chest pain or discomfort. Telemetry ICU does not have any consult I have reviewed the case. Primarily management of this patient is by the machine packager Review of Systems General: Other (no distress) Sepsis Event Evaluation Height, Weight, BMI Height: 6'0.00" Weight: 225lbs. 0.0oz. 102.782256oy; 33.59 BMI Method: Exam Exam Patient acknowledged, consented, and participated in this virtual visit which was conducted using real time audio/video Vital Signs Date Time Temp Pulse Resp B/P (MAP) Pulse Ox O2 Delivery O2 Flow Rate FiO2 07/16/22 16:00 62 17 125/82 (96) 93 Room Air 07/16/22 16:00 36.2 07/16/22 15:00 62 15 144/70 (94) 94 Room Air 07/16/22 14:30 62 21 147/71 (96) 94 Room Air 07/16/22 14:30 62 21 132/82 (99) 94 Room Air 07/16/22 14:15 62 15 144/70 (94) 94 Room Air 07/16/22 14:00 62 17 139/69 (92) 94 Room Air 07/16/22 13:45 62 13 129/65 (86) 92 Room Air 07/16/22 13:39 96 Room Air 07/16/22 13:30 62 18 141/69 (93) 91 Room Air 07/16/22 13:15 61 21 140/70 (93) 92 Room Air 07/16/22 13:00 61 25 149/75 (99) 91 Room Air 07/16/22 12:50 143/72 (95) 07/16/22 12:45 61 07/16/22 12:45 61 8 112/74 (87) 94 Room Air 07/16/22 12:40 36.1 63 8 113/72 (86) Room Air 94.00 07/16/22 12:30 61 113/72 (86) Room Air 07/16/22 08:21 36.0 47 18 152/81 (104) 96 Room Air Height & Weight Height: 6'0.00" Weight: 225lbs. 0.0oz. 102.242031vl; 33.59 BMI Method: General Appearance: No Apparent Distress Capillary Refill: Less Than 3 Seconds Results Lab Laboratory Tests 07/16/22 08:17 Assessment/Plan Assessment/Plan CAD S/P pci Management per Cardiology Critical Care: Critically Ill Patient Time spent with patient (mins): 15 SIRENA FELDER MD Jul 16, 2022 16:51
[2022-07-16] MEDS ORDERED: RIVAROXABAN 20 MG TABLET (XARELTO) PO SCH (17:00)
[2022-07-16] MEDS ORDERED: NON-FORMULARY MEDICATION 1 EA EA (Vitamin B Complex (B Complex) 1 EACH) PO SCH (21:00)
[2022-07-16] MEDS ORDERED: DIPHENHYDRAMINE HCL 25 MG PO SCH (21:00)
[2022-07-16] MEDS ORDERED: NON-FORMULARY MEDICATION 1 EA EA (Bimatoprost (Lumigan) 1 DROP) OU SCH (21:00)
[2022-07-16] MEDS ORDERED: NON-FORMULARY MEDICATION 1 EA EA (C,E,Zinc,Copper 11/Omega3s/Lut (Ocuvite Adult 50 Plus So PO SCH (21:00)
[2022-07-16] MEDS ORDERED: MAGNESIUM OXIDE (MAG-OX)400 MG TAB PO SCH (21:00)
[2022-07-16] MEDS ORDERED: NON-FORMULARY MEDICATION 1 EA EA (Magnesium Oxide (Magnesium) 400 MG) PO SCH (21:00)
[2022-07-16] MEDS ORDERED: ASPIRIN E.C. 81 MG (ECOTRIN) TAB PO SCH (21:00)
[2022-07-16] MEDS ORDERED: LORATADINE (CLARITIN) 10 MG TAB PO SCH (21:00)
[2022-07-16] MEDS ORDERED: NON-FORMULARY MEDICATION 1 EA EA (Cholecalciferol (Vitamin D3) (Vitamin D3) 125 MCG) PO SCH (21:00)
[2022-07-16] MEDS ORDERED: PANTOPRAZOLE 40 MG (PROTONIX) TAB PO SCH (21:00)
[2022-07-16] MEDS ORDERED: NON-FORMULARY MEDICATION 1 EA EA (Lutein 20 MG) PO SCH (21:00)
[2022-07-16] MEDS ORDERED: NON-FORMULARY MEDICATION 1 EA EA (Dexlansoprazole (Dexilant) 60 MG) PO SCH (21:00)
[2022-07-16] MEDS ORDERED: VITAMIN D3 125 MCG (5,000 UNITS) CAPSULE PO SCH (21:00)
[2022-07-16] MEDS ORDERED: meTOprolol SUCCINATE 100 MG (TOPROL XL) TAB PO SCH (21:00)
[2022-07-17] VITALS: BP 120/66
[2022-07-17 04:00] VITALS: BP 122/77
[2022-07-17 04:37] LABS: BASOPHILS # (AUTO) 0.1 10^3/uL (0.0-0.1); BASOPHILS % (AUTO) 1 % (0-10); EOSINOPHILS # (AUTO) 0.3 10^3/uL (0.0-0.3); EOSINOPHILS % (AUTO) 4 % (0-10); HEMATOCRIT 41 % (40-54); LYMPHOCYTES # (AUTO) 1.3 10^3/uL (1.0-4.0); LYMPHOCYTES % (AUTO) 17 % (12-44); MEAN CORPUSCULAR HEMOGLOBIN 30 pg (25-34); MEAN CORPUSCULAR HGB CONC 35 g/dL (32-36); MEAN CORPUSCULAR VOLUME 86 fL (80-99); MEAN PLATELET VOLUME 9.7 fL (9.0-12.2); MONOCYTES # (AUTO) 0.6 10^3/uL (0.0-1.0); MONOCYTES % (AUTO) 8 % (0-12); NEUTROPHILS # (AUTO) 5.1 10^3/uL (1.8-7.8); NEUTROPHILS % (AUTO) 70 % (42-75); PLATELET COUNT 191 10^3/uL (130-400); WHITE BLOOD COUNT 7.3 10^3/uL (4.3-11.0)
[2022-07-17 05:05] LABS: CALCIUM 9.3 MG/DL (8.5-10.1); CREATININE SERUM 0.93 MG/DL (0.60-1.30); MAGNESIUM 1.7 MG/DL (1.6-2.4); POTASSIUM 4.1 MMOL/L (3.6-5.0)
--- NOTE | 2022-07-17 07:46 | Progress Note - Cardiology ---
Cardiology SOAP Progress Note Subjective: Sitting up in bed eating morning meal No c/o CP, SOB, palpitations No c/o right groin discomfort No report of n/v Objective: I&O/Vital Signs 07/17/22 07/17/22 07/17/22 07/17/22 00:00 01:00 04:00 07:01 Temp 36.8 36.4 Pulse 64 64 63 79 Resp 16 11 B/P (MAP) 120/66 (84) 122/77 (92) Pulse Ox 96 94 O2 Delivery Room Air Room Air 07/17/22 07/17/22 07/17/22 07/17/22 08:00 09:00 11:15 11:38 Temp 36.5 Pulse 72 88 88 Resp 18 17 19 B/P (MAP) 122/77 (92) 130/80 (97) 131/80 Pulse Ox 96 96 96 96 O2 Delivery Room Air Room Air Room Air Room Air 07/17/22 00:00 Intake Total 1240 ml Output Total 900 ml Balance 340 ml Weight (Pounds): 225 Weight (Ounces): 0.0 Weight (Calculated Kilograms): 102.431179 Side: right Groin site without hematoma: Yes Condition: DP/PT pulses palpable, extremity w/d/p Bruising: mild bruising Constitutional: AAO x 3, well-developed, well-nourished Respiratory: No accessory muscle use, No respiratory distress; chest expansion is symmetric, chest is bilaterally symmetric, lungs clear to auscultation Cardiovascular: irregularly irregular; No JVD; S1 and S2 Gastrointestional: No tender; soft, round, audible bowel sounds Extremities: no lower extremity edema bilateral Neurologic/Psychiatric: grossly intact (moves all extremities) Skin: No rash on exposed areas, No ulcerations on exposed areas Results/Procedures: Labs Laboratory Tests 07/17/22 04:30: White Blood Count 7.3, Red Blood Count 4.72, Hemoglobin 14.0, Hematocrit 41, Mean Corpuscular Volume 86, Mean Corpuscular Hemoglobin 30, Mean Corpuscular He moglobin Concent 35, Red Cell Distribution Width 13.1, Platelet Count 191, Mean Platelet Volume 9.7, Immature Granulocyte % (Auto) 0, Neutrophils (%) (Auto) 70, Lymphocytes (%) (Auto) 17, Monocytes (%) (Auto) 8, Eosinophils (%) (Auto) 4, Basophils (%) (Auto) 1, Neutrophils # (Auto) 5.1, Lymphocytes # (Auto) 1.3, Monocytes # (Auto) 0.6, Eosinophils # (Auto) 0.3, Basophils # (Auto) 0.1, Immature Granulocyte # (Auto) 0.0, Sodium Level 139, Potassium Level 4.1, Chloride Level 109H, Carbon Dioxide Level 19L, Anion Gap 11, Blood Urea Nitrogen 15, Creatinine 0.93, Estimat Glomerular Filtration Rate 91, BUN/Creatinine Ratio 16, Glucose Level 131H, Calcium Level 9.3, Magnesium Level 1.7 Procedures S/P cardiac cath with successful intervention A/P: Assessment: CAD - Coronary artery disease primarily consisting of a long up to 75% stenosis in the proximal and mid right coronary that was stented with overlapping stents (Skypoint 3.5 x 18 mm distally and Skypoint 3.5 x 38 mm proximally). The left anterior descending artery has 30% proximal stenosis. Ramus intermedius artery has a widely patent stent that was placed in 2019. Left circumflex artery does not exhibit significant disease. Right coronary artery is dominant. Left ventricular end-diastolic pressure 10 mmHg. Left ventricular ejection fraction 50% to 55%. PAF, now persistent/permanent - Event monitor completed on 02/17/[address] Monique showed sinus rhythm, sinus tachycardia, low-grade atrial and ventricular ectopy, wide-complex tachycardia for 18 seconds with heart rate of 186 BPM - ILR implant 06-03-[address] Monique - PAF ablation done on 05/08/[address] Monique - Still with occ AF episodes (PAF approx 2 percent). Amiodarone 200mg pill in the pocket approach (has not taken it for about a year) - Xarelto for stroke prophylaxis - Echo done 07/05/[address] Monique: shows Normal LV fx, LA diameter 5.4cm. Mild concentric LVH. BERNARDO treated with CPAP Erectile dysfunction Plan: S/P cardiac cath with successful coronary intervention Continue DAPT d/t recent stent placement Continue OAC with Xarelto for stroke prophylaxis d/t a-fib Continue all other home medications Advise f/u in 1 week or sooner if needed GERI MCNAMARA Jul 17, 2022 07:46
[2022-07-17] MEDS ORDERED: CLOP75TA28 PO (07:47)
[2022-07-17 08:00] VITALS: BP 122/77
--- NOTE | 2022-07-17 08:31 | Discharge Inst-Cardiology ---
Discharge Inst-Cardiac Discharge Medications New Medications: Clopidogrel Bisulfate (Clopidogrel) 75 Mg Tablet 75 MG PO DAILY, #30 TAB 5 Refills Continued Medications: Aspirin (Aspirin EC) 81 Mg Tablet.dr 81 MG PO HS, TAB Atorvastatin Calcium (Atorvastatin Calcium) 80 Mg Tablet 80 MG PO HS, TAB Bimatoprost (Lumigan) 2.5 Ml Drops 1 DROP OU HS, EA Cholecalciferol (Vitamin D3) (Vitamin D3) 125 Mcg (5000 Unit) Capsule 125 MCG PO HS, CAP Dexlansoprazole (Dexilant) 60 Mg Cap..bp 60 MG PO HS Diltiazem HCl (Diltiazem 24Hr ER) 360 Mg Cap.er.24h 360 MG PO DAILY, CAP Diphenhydramine HCl (Benadryl) 25 Mg Capsule 25 MG PO HS, CAP Loratadine (Claritin) 10 Mg Tablet 10 MG PO HS, TAB Lutein (Lutein) 20 Mg Capsule 20 MG PO HS, CAP Magnesium Oxide (Magnesium Oxide) 500 Mg Tablet 500 MG PO HS, TAB Metoprolol Succinate (Metoprolol Succinate) 100 Mg Tab.er.24h 100 MG PO HS, TAB Multivitamin/Iron/Folic Acid (Multivitamin with Iron Tablet) 18 Mg Iron-400 Mcg Tablet 1 EACH PO HS, TAB Rivaroxaban (Xarelto) 20 Mg Tablet 20 MG PO HS, TAB Vitamin B Complex (B Complex) 1 Each Tablet 1 EACH PO HS, TAB New, Converted or Re-Newed RX: Transmitted to Pharmacy Patient Instructions Patient Instructions: Please schedule follow up appointment to see Dr. Nam in 1 week GERI MCNAMARA Jul 17, 2022 08:31
[2022-07-17] MEDS ORDERED: CLOPIDOGREL 75 MG (PLAVIX) TABLET PO SCH (09:00)
[2022-07-17] MEDS ORDERED: NON-FORMULARY MEDICATION 1 EA EA (Diltiazem HCl (Diltiazem 24Hr ER) 360 MG) PO SCH (09:00)
[2022-07-17] MEDS ORDERED: DILTIAZEM 360 MG PO SCH (09:00)
[2022-07-17 11:15] VITALS: BP 130/80
[2022-07-17 11:38] VITALS: BP 131/80
--- NOTE | 2022-07-17 11:43 | Progress Note - Cardiology ---
Cardiology SOAP Progress Note Subjective: No cp or palp or syncope or shortness of breath No n/v/d No swelling No focal weakness No groin or leg discomfort Objective: I&O/Vital Signs 07/17/22 07/17/22 07/17/22 07/17/22 00:00 01:00 04:00 07:01 Temp 36.8 36.4 Pulse 64 64 63 79 Resp 16 11 B/P (MAP) 120/66 (84) 122/77 (92) Pulse Ox 96 94 O2 Delivery Room Air Room Air 07/17/22 07/17/22 07/17/22 08:00 09:00 11:15 Temp 36.5 Pulse 72 88 Resp 18 17 B/P (MAP) 122/77 (92) 130/80 (97) Pulse Ox 96 96 96 O2 Delivery Room Air Room Air Room Air 07/17/22 00:00 Intake Total 1240 ml Output Total 900 ml Balance 340 ml Weight (Pounds): 225 Weight (Ounces): 0.0 Weight (Calculated Kilograms): 102.283092 Side: right Groin site without hematoma: Yes Condition: DP/PT pulses palpable, extremity w/d/p Bruising: mild bruising Constitutional: AAO x 3, well-developed, well-nourished Respiratory: No accessory muscle use, No respiratory distress; chest expansion is symmetric, chest is bilaterally symmetric, lungs clear to auscultation Cardiovascular: irregularly irregular; No JVD; S1 and S2 Gastrointestional: No tender; soft, round, audible bowel sounds Extremities: no lower extremity edema bilateral Neurologic/Psychiatric: other Skin: No rash on exposed areas, No ulcerations on exposed areas Results/Procedures: Labs Laboratory Tests 07/17/22 04:30: White Blood Count 7.3, Red Blood Count 4.72, Hemoglobin 14.0, Hematocrit 41, Mean Corpuscular Volume 86, Mean Corpuscular Hemoglobin 30, Mean Corpuscular Hemoglobin Concent 35, Red Cell Distribution Width 13.1, Platelet Count 191, Mean Platelet Volume 9.7, Immature Granulocyte % (Auto) 0, Neutrophils (%) (Auto) 70, Lymphocytes (%) (Auto) 17, Monocytes (%) (Auto) 8, Eosinophils (%) (Auto) 4, Basophils (%) (Auto) 1, Neutrophils # (Auto) 5.1, Lymphocytes # (Auto) 1.3, Monocytes # (Auto) 0.6, Eosinophils # (Auto) 0.3, Basophils # (Auto) 0.1, Immature Granulocyte # (Auto) 0.0, Sodium Level 139, Potassium Level 4.1, Chloride Level 109H, Carbon Dioxide Level 19L, Anion Gap 11, Blood Urea Nitrogen 15, Creatinine 0.93, Estimat Glomerular Filtration Rate 91, BUN/Creatinine Ratio 16, Glucose Level 131H, Calcium Level 9.3, Magnesium Level 1.7 Laboratory Tests 07/16/22 08:17 07/17/22 04:30 A/P: Assessment: CAD - Last cath 07/16/22: coronary artery disease primarily consisting of a long up to 75% stenosis in the proximal and mid right coronary that was stented with overlapping stents (Skypoint 3.5 x 18 mm distally and Skypoint 3.5 x 38 mm proximally). The left anterior descending artery has 30% proximal stenosis. Ramus intermedius artery has a widely patent stent that was placed in 2019. Left circumflex artery does not exhibit significant disease. Right coronary artery is dominant. Left ventricular end-diastolic pressure 10 mmHg. Left ventricular ejection fraction 50% to 55%. PAF, now persistent/permanent - Event monitor completed on 02/17/[address] Monique showed sinus rhythm, sinus tachycardia, low-grade atrial and ventricular ectopy, wide-complex tachycardia for 18 seconds with heart rate of 186 BPM - ILR implant 06-03-[address] Monique - PAF ablation done on 05/08/[address] Monique - Still with occ AF episodes (PAF approx 2 percent). Amiodarone 200mg pill in the pocket approach (has not taken it for about a year) - Xarelto for stroke prophylaxis - Echo done 07/05/[address] Monique: shows Normal LV fx, LA diameter 5.4cm. Mild concentric LVH. BERNARDO treated with CPAP Plan: S/P cardiac cath with successful coronary intervention Continue DAPT d/t recent stent placement Continue OAC with Xarelto for stroke prophylaxis d/t a-fib Advised to continue DAPT + OAC for 5 more days, then Plavix + OAC. He understands Continue all other home medications Advise f/u in 1 week or sooner if needed TANO DELGADO MD FACP FACC CCDS Jul 17, 2022 11:42
== END 2022-07-17 12:11 | disposition home or self-care (01) ==
LOC: CATH 07:53 → ICU 12:30 → CSD 19:30 → CATH 07-17 12:11
PROVIDERS: ATTEND Internal Medicine Cardiovascular Disease
DX: I25.110 Atherosclerotic heart disease of native coronary artery with unstable angina pectoris (principal); G47.33 Obstructive sleep apnea (adult) (pediatric); I48.0 Paroxysmal atrial fibrillation; I51.7 Cardiomegaly; F52.21 Male erectile disorder; Z98.890 Other specified postprocedural states; Z79.82 Long term (current) use of aspirin; Z79.899 Other long term (current) drug therapy; Z79.01 Long term (current) use of anticoagulants
CPT/HCPCS: 80048; 80053; 80061; 83735; 85025; 85027; 85610; 85730; 87081; 93005 ×2; 93458; C1769; C1874 ×2; C1887; C1894 ×2; C9600; 36415; 90662

== ENCOUNTER → 2023-04-15 | Outpatient (CLI) | payer BC ==
[~2023-04-15] MED LIST changes: +ASPI-1238 PO; +CHOL500050 PO; +CLOP-31 PO; -CLOP75TA69 PO; +DILT360C36 PO; +LUTE20CA2 PO; +MAGN400T39 PO; +MAGN500T PO; +MULT-1076 PO; +VITA-189 PO
[2023-04-15 15:39] LABS: HEMATOCRIT 41 % (40-54); HEMOGLOBIN 14.2 g/dL (13.3-17.7); MEAN CORPUSCULAR HEMOGLOBIN 30 pg (25-34); MEAN CORPUSCULAR HGB CONC 35 g/dL (32-36); MEAN CORPUSCULAR VOLUME 86 fL (80-99); MEAN PLATELET VOLUME 9.7 fL (9.0-12.2); PLATELET COUNT 238 10^3/uL (130-400); WHITE BLOOD COUNT 7.3 10^3/uL (4.3-11.0)
[2023-04-15 15:59] LABS: CALCIUM 9.2 MG/DL (8.5-10.1); CREATININE SERUM 1.01 MG/DL (0.60-1.30); MAGNESIUM 1.5 MG/DL (1.6-2.4); POTASSIUM 3.7 MMOL/L (3.6-5.0)
== END ==
LOC: LAB 15:16
PROVIDERS: ATTEND Internal Medicine Cardiovascular Disease
DX: I48.0 Paroxysmal atrial fibrillation (principal); I25.10 Atherosclerotic heart disease of native coronary artery without angina pectoris; I48.4 Atypical atrial flutter
CPT/HCPCS: 36415; 80048; 83735; 85027

== ENCOUNTER → 2023-07-29 | Day surgery (SDC) | payer BC ==
[~2023-07-29] VITALS: Ht 182.8 cm; Wt 105.0 kg
[~2023-07-29] MED LIST changes: +LIDOCAINE 1% INJ 20 ML VIAL INJ ONE; +LIDOCAINE 1% INJ 20 ML VIAL ONE; +NEBI5TAB2 PO; -NEBI5TAB8 PO
[2023-07-29 14:12] VITALS: BP 126/86
== END | disposition home or self-care (01) ==
LOC: CATH 15:00
PROVIDERS: ATTEND Internal Medicine Cardiovascular Disease
DX: I48.21 Permanent atrial fibrillation (principal); I25.118 Atherosclerotic heart disease of native coronary artery with other forms of angina pectoris; G47.33 Obstructive sleep apnea (adult) (pediatric); N52.9 Male erectile dysfunction, unspecified; I51.7 Cardiomegaly; Z79.01 Long term (current) use of anticoagulants

== ENCOUNTER → 2023-08-19 | Day surgery (SDC) | payer BC ==
[~2023-08-19] VITALS: Ht 182.9 cm; Wt 105.0 kg
[2023-08-19 10:25] VITALS: BP 141/101
--- NOTE | 2023-08-19 20:08 | OPERATIVE REPORT ---
DATE OF SERVICE: 08/19/2023 SURGEON: Rodger Nam M.D.; MICKY; JIMBO; MICHAEL; PREOPERATIVE DIAGNOSIS: Implantable loop recorder at end of life. PROCEDURE: Old implantable loop recorder explant. New implantable loop recorder implant. POSTOPERATIVE DIAGNOSIS: Replacement of an old implantable loop recorder. INDICATIONS The patient is a 67-year-old gentleman who has paroxysmal atrial fibrillation and palpitations. Implantable loop recorder has help with management. It is at end of life. Informed consent was obtained for removal and replacement. DESCRIPTION OF PROCEDURE: [facility] The left prepectoral area, the site of previous loop recorder implantation was prepared and draped in the usual sterile fashion. 1% lidocaine was used for local anesthesia. Sharp and blunt dissection was used to remove the old device from the pocket and a new device was placed in the same pocket and the wound edges were closed using 3-0 Vicryl. He tolerated the procedure well. The newly implanted device is a Lectorati LINQ II device with serial number [id number]. Job ID: [id number] DocumentID: [id number] Dictated Date: 08/19/2023 12:25:01 Talent Advisor Date: 08/19/2023 20:06:00 Dictated By: RODGER NAM MD; MICKY; JIMBO; MICHAEL;
== END | disposition home or self-care (01) ==
LOC: CATH 09:58
PROVIDERS: ATTEND Internal Medicine Cardiovascular Disease
DX: Z45.09 Encounter for adjustment and management of other cardiac device (principal); I48.0 Paroxysmal atrial fibrillation
CPT/HCPCS: 33285; 33286; C1764